=== PATIENT | female | born 1935 | race Caucasian/White ===

== ENCOUNTER → 2017-09-03 | Outpatient (CLI) | payer MEDICARE, OTHER ==
[~2017-09-03] MED LIST: ACE3 PO; ACET500T68 PO; AMOX500T10 PO; ATOR10TA65 PO; ATR10 PO; BRIM5DRO7 OP; CALC-635 PO; CALC-649 PO; CEFU500T50 PO; CETI-176 PO; CLIN300C99 PO; COS10OD OD; CYA1000 PO; CYCL25CA13 PO; CYCL25CA5 PO; CYCL25CA8 PO; CYCL50CA5 PO; DESO15OI9 TP; DORZ10DR3 OP; FURO20TA19 PO; HYDR-4225 PO; HYDR10TA3 PO; LEVO-3 PO; LEVO150T72 PO; LEVO88TA45 PO; LISI-374 PO; LISI2.5T60 PO; METH4TAB66 PO; MV-M1TAB38; PRE5 PO; PRED-1 PO; PRED-420 PO; PRED2.5T6 PO; PRED20TA6 PO; PRED5DRO34 OS; SIRO1TAB4 PO; TRAM-420 PO; TRI05T TP; URSO300C21 PO; URSO500T5 PO; VIT-7 PO; [UNRECOGNIZED DRUG - CODE] OD; [UNRECOGNIZED DRUG - CODE] OP; [UNRECOGNIZED DRUG - CODE] PO; [UNRECOGNIZED DRUG - CODE] PO; [UNRECOGNIZED DRUG - CODE] PO
== END ==
LOC: LAB 16:09
PROVIDERS: ATTEND Otolaryngology
DX: L23.9 Allergic contact dermatitis, unspecified cause (principal); R91.8 Other nonspecific abnormal finding of lung field; Z94.4 Liver transplant status
CPT/HCPCS: 86003

== ENCOUNTER → 2017-09-10 | Outpatient (CLI) | payer MEDICARE, OTHER ==
[2017-09-10 09:32] LABS: PLATELET COUNT, AUTOMATED 283 K/uL (150-450)
== END ==
LOC: LAB 09:08
PROVIDERS: ATTEND Nurse Practitioner Family
DX: Z48.23 Encounter for aftercare following liver transplant (principal); Z94.4 Liver transplant status
CPT/HCPCS: 36415; 80158; 82040; 82247; 82310; 82374; 82435; 82565; 82947; 84075; 84132; 84155; 84295; 84450; 84460; 84520; 85025

== ENCOUNTER → 2017-10-15 | Outpatient (CLI) | payer MEDICARE, OTHER | LOC: LAB 08:25 | PROVIDERS: ATTEND Internal Medicine | DX: I10 Essential (primary) hypertension (principal); E03.9 Hypothyroidism, unspecified | CPT/HCPCS: 36415; 82040; 82247; 82310; 82374; 82435; 82465; 82565; 82947; 83718; 84075; 84132; 84155; 84295; 84443; 84450; 84460; 84478; 84520 ==

== ENCOUNTER 2017-10-24 14:27 | Emergency (ER) | payer MEDICARE, OTHER ==
[~2017-10-24 14:27] MED LIST changes: -ASPI81TA94 PO
--- NOTE | 2017-10-24 14:34 | ER Report ---
History and Physical Time Seen By MD: 14:34 HPI/ROS CHIEF COMPLAINT: Chest pain HISTORY OF PRESENT ILLNESS: This is an 82-year-old female who presents to the emergency department for chest pain. Patient states that about 10:00 today while doing some light housework she developed some left anterior chest pain that wraps around her left chest causing some shortness of breath. Patient denies nausea or vomiting. Patient denies diaphoresis. Patient does state that she had a headache earlier this morning which is unusual for her she did take some Tylenol which helped the headache go away. Patient denies headaches at this time. Patient denies aches, chills, abdominal pain, rashes or dysuria. Patient denies chest pain at this time. REVIEW OF SYSTEMS: Constitutional: No fever, no chills. Eyes: No discharge. ENT: No sore throat. Cardiovascular: As above. Respiratory: As above. Gastrointestinal: No abdominal pain, no vomiting. Genitourinary: No hematuria. Musculoskeletal: No back pain. Skin: No rashes. Neurological: As above. Allergies: Coded Allergies: Sulfa (Sulfonamide Antibiotics) (Verified Allergy, Severe, blisters in mouth, 10/24/17) lisinopril (Verified Allergy, Severe, angioedema, 10/24/17) alendronate sodium (Verified Allergy, Intermediate, JOINT SWELLING, ) benzalkonium chloride (Verified Allergy, Intermediate, FACIAL SWELLING, ) brimonidine (Verified Allergy, Intermediate, SWELLING, 10/24/17) chocolate flavor (Verified Allergy, Intermediate, UNKNOWN, 10/24/17) clindamycin (Verified Allergy, Intermediate, facial swelling, itching and rash, 10/24/17) difluprednate (Verified Allergy, Intermediate, SWELLING, 10/24/17) dog dander (Verified Allergy, Intermediate, RASH, 10/24/17) dorzolamide (Verified Allergy, Intermediate, EYE ITCHING, 10/24/17) timolol (Verified Allergy, Intermediate, EYE ITCHING, 10/24/17) travoprost (Verified Allergy, Intermediate, FACIAL SWELLING, 10/24/17) milk (Verified Allergy, Mild, RASH, 10/24/17) Uncoded Allergies: PRESERVATIVES IN EYE MEDS (Allergy, Unknown, 09/07/13) Home Meds Active Scripts Levothyroxine Sodium (SYNTHROID) 88 Mcg Tablet, 1 TAB PO QDAY, #45 TAB 0 Refills Prov:HORACE MEJIA MD 10/20/17 Hydroxyzine Hcl (HYDROXYZINE HCL) 25 Mg Tablet, 1 TAB PO TID Y for itching, #30 TAB 1 Refill Prov:HORACE MEJIA MD 10/13/17 Amoxicillin 500 Mg Tab (AMOXICILLIN 500 MG TAB) 500 Mg Tablet, 4 TAB PO ONCE, # 4 TAB 0 Refills Take 4 tablets (2 gms) orally 1 hour prior to dental procedure. Prov:HORACE MEJIA MD 09/10/17 Atorvastatin Calcium (ATORVASTATIN CALCIUM) 10 Mg Tablet, 1 TAB PO QDAY, #90 TAB 3 Refills Prov:HORACE MEJIA MD 02/18/17 Furosemide (LASIX) 20 Mg Tablet, 1 TAB PO DAILY Y for edema, #30 TAB 5 Refills Prov:HORACE MEJIA MD 01/29/17 Reported Medications Mv-Mn/FA/Vit K/Lycop/Lut/Zeaxa (Ocuvite Eye + Multi Tablet) 1 Each Tablet, 1 DAILY 03/13/17 Calcium Carbonate/Vitamin D3 (CALCIUM 600 + VIT D 200 TABLET) 1 Each Tablet, 1 EACH PO DAILY 03/13/17 Cyclosporine (CYCLOSPORINE) 25 Mg Capsule, 2 CAP PO BID, CAPSULE 02/20/16 Cetirizine Hcl (ZYRTEC) 10 Mg Tablet, 1 TAB PO QDAY Y for ALLERGY SYMPTOMS, TAB 02/01/16 Acetaminophen (TYLENOL EXTRA STRENGTH) 500 Mg Tablet, 1-2 TAB PO QID Y for PAIN , TAB 02/01/16 Ursodiol (URSODIOL) 300 Mg Capsule, 1 CAP PO BID, CAPSULE 01/30/15 Discontinued Scripts Levothyroxine Sodium (LEVOTHYROXINE SODIUM) 100 Mcg Tablet, 1 TAB PO QDAY, #90 TAB 1 Refill Prov:HORACE MEJIA MD 09/23/17 Past Medical/Surgical History Patient has a past medical and surgical history of pericarditis, hypercholesterolemia, lung mass, pneumonia, insomnia, intermittent abdominal pain, 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 Reviewed Nurses Notes: Yes Hx Smoking: No Smoking Status: Never Smoker Exposure to Second Hand Smoke?: Yes (father smoked pipes, smoked cigarettes and pipes) Hx Substance Use Disorder: No Hx Alcohol Use: No Constitutional Vital Sign - Last 24 Hours 10/24/17 10/24/17 10/24/17 10/24/17 14:32 14:32 14:42 14:57 Temp 97.8 Pulse 122 114 111 Resp 18 17 B/P (MAP) 154/98 154/98 (116) Pulse Ox 93 93 93 O2 Delivery Room Air 10/24/17 10/24/17 10/24/17 10/24/17 14:59 14:59 15:12 15:15 Pulse 111 107 Resp 21 17 B/P (MAP) 140/93 (109) 140/93 (109) 156/97 (116) Pulse Ox 90 94 O2 Delivery Room Air 10/24/17 10/24/17 10/24/17 10/24/17 15:27 15:30 15:42 15:45 Pulse 105 100 Resp 35 28 B/P (MAP) 171/101 (124) 153/88 (109) Pulse Ox 97 96 10/24/17 10/24/17 10/24/17 10/24/17 15:57 16:02 16:15 16:17 Pulse 99 97 96 Resp 13 15 21 B/P (MAP) 145/85 (105) Pulse Ox 98 96 96 10/24/17 10/24/17 10/24/17 16:22 16:30 16:37 Pulse 94 96 Resp 19 51 B/P (MAP) 136/81 (99) Pulse Ox 96 95 Intake and Output 10/24/17 10/24/17 10/25/17 15:00 23:00 07:00 Intake Total 507 ml Balance 507 ml Physical Exam General Appearance: The patient is alert, has no immediate need for airway protection and no signs of toxicity. Eyes: Pupils equal and round no pallor or injection. ENT, Mouth: Mucous membranes are moist. Respiratory: There are no retractions, lungs are clear to auscultation. Cardiovascular: Regular rate and rhythm, no murmurs, clicks or rubs. Gastrointestinal: Abdomen is soft and non tender, no masses, bowel sounds normal. Neurological: Alert and oriented 4. Lovenox Slana's. Following all commands. No focal neuro deficits. Skin: Warm and dry, no rashes. Musculoskeletal: Neck is supple non tender. Extremities are nontender, nonswollen and have full range of motion. DIFFERENTIAL DIAGNOSIS: After history and physical exam differential diagnosis was considered for chest pain including but not limited to myocardial ischemia, pericarditis pulmonary embolus, chest wall pain, pleural inflammation and pulmonary infectious causes. Medical Decision Making Data Points Result Diagram: 10/24/17 1435 10/24/17 1435 Laboratory Hematology Test 10/24/17 14:35 10/24/17 15:00 Red Blood Count 5.02 M/uL (4.17-5.56) Mean Corpuscular Volume 90.1 fL (80.0-96.0) Mean Corpuscular Hemoglobin 31.4 pg (26.0-33.0) Mean Corpuscular Hemoglobin Concent 34.9 g/dL (32.0-36.0) Red Cell Distribution Width 13.9 % (11.5-14.5) Mean Platelet Volume 8.1 fL (7.2-11.1) Neutrophils (%) (Auto) 80.5 % (39.4-72.5) Lymphocytes (%) (Auto) 10.8 % (17.6-49.6) Monocytes (%) (Auto) 6.9 % (4.1-12.4) Eosinophils (%) (Auto) 1.1 % (0.4-6.7) Basophils (%) (Auto) 0.7 % (0.3-1.4) Nucleated RBC Relative Count (auto) 0.2 /100WBC Neutrophils # (Auto) 10.5 K/uL (2.0-7.4) Lymphocytes # (Auto) 1.4 K/uL (1.3-3.6) Monocytes # (Auto) 0.9 K/uL (0.3-1.0) Eosinophils # (Auto) 0.1 K/uL (0.0-0.5) Basophils # (Auto) 0.1 K/uL (0.0-0.1) Nucleated RBC Absolute Count (auto) 0.02 K/uL D-Dimer Quantitative (PE/DVT) 0.98 ug/ml (0-0.50) Sodium Level 137 mmol/L (137-145) Potassium Level 4.0 mmol/L (3.5-5.0) Chloride Level 97 mmol/L (98-107) Carbon Dioxide Level 27 mmol/L (22-31) Blood Urea Nitrogen 25 mg/dl (7-18) Creatinine 1.40 mg/dl (0.52-1.04) Glomerular Filtration Rate Calc 36.0 Random Glucose 142 mg/dl (75-110) Calcium Level 10.2 mg/dl (8.4-10.2) Total Bilirubin 1.4 mg/dl (0.2-1.3) Aspartate Amino Transf (AST/SGOT) 44 U/L (0-35) Alanine Aminotransferase (ALT/SGPT) 39 U/L (0-56) Alkaline Phosphatase 577 U/L (0-126) Troponin I 2.600 ng/ml B-Type Natriuretic Peptide 129 pg/ml (0-100) Total Protein 8.0 gm/dl (6.3-8.2) Albumin 4.3 g/dl (3.5-5.0) Prothrombin Time 13.0 seconds (12.0-14.4) Prothromb Time International Ratio 0.98 Activated Partial Thromboplast Time 34 seconds (23-35) Chemistry Test 10/24/17 14:35 10/24/17 15:00 White Blood Count 13.1 k/uL (4.5-11.0) Red Blood Count 5.02 M/uL (4.17-5.56) Hemoglobin 15.8 g/dL (12.0-16.0) Hematocrit 45.3 % (34.0-47.0) Mean Corpuscular Volume 90.1 fL (80.0-96.0) Mean Corpuscular Hemoglobin 31.4 pg (26.0-33.0) Mean Corpuscular Hemoglobin Concent 34.9 g/dL (32.0-36.0) Red Cell Distribution Width 13.9 % (11.5-14.5) Platelet Count 308 K/uL (150-450) Mean Platelet Volume 8.1 fL (7.2-11.1) Neutrophils (%) (Auto) 80.5 % (39.4-72.5) Lymphocytes (%) (Auto) 10.8 % (17.6-49.6) Monocytes (%) (Auto) 6.9 % (4.1-12.4) Eosinophils (%) (Auto) 1.1 % (0.4-6.7) Basophils (%) (Auto) 0.7 % (0.3-1.4) Nucleated RBC Relative Count (auto) 0.2 /100WBC Neutrophils # (Auto) 10.5 K/uL (2.0-7.4) Lymphocytes # (Auto) 1.4 K/uL (1.3-3.6) Monocytes # (Auto) 0.9 K/uL (0.3-1.0) Eosinophils # (Auto) 0.1 K/uL (0.0-0.5) Basophils # (Auto) 0.1 K/uL (0.0-0.1) Nucleated RBC Absolute Count (auto) 0.02 K/uL D-Dimer Quantitative (PE/DVT) 0.98 ug/ml (0-0.50) Glomerular Filtration Rate Calc 36.0 Calcium Level 10.2 mg/dl (8.4-10.2) Total Bilirubin 1.4 mg/dl (0.2-1.3) Aspartate Amino Transf (AST/SGOT) 44 U/L (0-35) Alanine Aminotransferase (ALT/SGPT) 39 U/L (0-56) Alkaline Phosphatase 577 U/L (0-126) Troponin I 2.600 ng/ml B-Type Natriuretic Peptide 129 pg/ml (0-100) Total Protein 8.0 gm/dl (6.3-8.2) Albumin 4.3 g/dl (3.5-5.0) Prothrombin Time 13.0 seconds (12.0-14.4) Prothromb Time International Ratio 0.98 Activated Partial Thromboplast Time 34 seconds (23-35) Coagulation Test 10/24/17 14:35 10/24/17 15:00 D-Dimer Quantitative (PE/DVT) 0.98 ug/ml Prothrombin Time 13.0 seconds Prothromb Time International Ratio 0.98 Activated Partial Thromboplast Time 34 seconds EKG/Imaging EKG Interpretation 12 lead EKG: Time of EKG 1439. Rhythm: Sinus tachycardia, ventricular rate 109 BPM. Ogema: normal QRS: normal ST segments: There does appear to be some ST elevation in V3, V4, V5 and V6, however there are no reciprocal changes noted. She does have MI interval depression in V2. There are changes in the EKG in the V3 through V6 leads from the 03/13/2017 EKG. 12 lead EKG: Repeat EKG 1503 Rhythm: Sinus tachycardia, ventricular rate 103 BPM. Ogema: normal QRS: normal ST segments: ST elevation in V2, V3, V4 V5. No significant changes from the 14 3090 EKG. Imaging Location: [facility] Patient: Patricia Garcia : 1935 Visit/Account:[id number] Date of Sevice: 10/24/2017 2 VIEWS CHEST INDICATION: Chest pain. COMPARISON: 07/07/2017. FINDINGS: Cardiomediastinal silhouette and pulmonary vessels within normal limits. There is no focal infiltrate or lobar consolidation. There is no pneumothorax or pleural effusion. No nodule. Upper abdomen is unremarkable. No acute bony abnormality. Stable compression the T12 vertebral body. Left shoulder arthroplasty without sequelae. IMPRESSION: 1. No acute cardiopulmonary process. Report Dictated By: Deshaun Kramer at 10/24/2017 3:02 PM Report E-Signed By: Deshaun Kramer at 10/24/2017 3:05 PM WSN:[id number] ED Course/Re-evaluation Clinical Indication for ER IV: Hydration, IV Access ED Course The patient was admitted to room. A history and physical were obtained. Differential diagnoses were considered. An IV was started. A CBC, CMP, Troponin , D-dimer and BNP were obtained. The troponin was elevated at 2.6. The PVCs 13.1 BUN 25 creatinine 1.4. EKGs 2 showing elevation in V3 and V4, V5, EV leads are different from the 03/13/2017 EKG were there was no elevation noted. Patient does have MI interval depression which is the same on the EKG from 2017. Two-view chest x-ray showing no acute cardio for any process. I did review these results with the patient did tell her that we will need to transport her to [place] patient was in agreement with this. I did speak with Dr. mann-the pool table mechanic on-call at [facility] and he is accepted the patient as an N-STEMI. I also spoke with Dr. Bowers the hospitalist at [facility] who has agreed to accept the patient as well. I did review this with the patient and she is in agreement with this plan of care. Patient will be transported to [facility] V a ground ambulance. Patient did get 324mg ASA, 4 mg IV morphine, 4,000 unit heparin bolus and started on a 12unit per kg heparin gtt. The patient was also given 50mcg IV fentanyl and a 500ml NS bolus. Patient did have intermittent chest pain and shoulder pain in the emergency department the morphine did seem to help however she was still having some discomfort therefore we decided to give fentanyl which seemed to relieve some of her discomfort. 10/24/2017 4:02:51 pm I did speak with Dr. Toussaint the [facility] pool table mechanic pre k special education teacher who accepted the patient as an N-Stemi. I will go ahead and give a 4000 unit heparin bolus as well as a 12 unit per kilogram heparin drip. Dr. Toussaint said there is no need to give Plavix or tenecteplase at this time. He said talk with the hospitalist to get their acceptance as a hospitalist patient. 10/24/2017 4:04:41 pm he did speak with Dr. Bowers at [facility], the hospitalist on- call he is accepted the patient and his services and will consult with Dr. Toussaint. Decision to Disposition Date: Oct 24, 2017 Decision to Disposition Time: 15:53 Depart Departure Latest Vital Signs Vital Signs Date Time Temp Pulse Resp B/P (MAP) Pulse Ox O2 Delivery O2 Flow Rate FiO2 10/24/17 16:37 96 51 95 10/24/17 16:30 136/81 (99) 10/24/17 14:59 Room Air 10/24/17 14:32 97.8 Impression: Primary Impression: Non-ST elevation TN (NSTEMI) Condition: Improved Disposition: XFER TO ACUTE CARE [facility]OSPITAL Referrals: HORACE MEJIA MD (PCP) MACHINIST INSTRUCTOR/PA consult with MD: Verbally, Examined Patient MD Consult Note: DAJUAN Cote CYBER SOFTWARE ENGINEER-BC Oct 24, 2017 14:34
[2017-10-24] MEDS ORDERED: ASPIRIN 81 MG CHEW PO ONE (14:45)
[2017-10-24 14:50] LABS: PLATELET COUNT, AUTOMATED 308 K/uL (150-450)
--- NOTE | 2017-10-24 15:09 | RADIOLOGY IMAGING REPORT ---
FACILITY: [facility] PATIENT NAME: Patricia Garcia : 1935 MR: [id number] V: [id number] EXAM DATE: ORDERING PHYSICIAN: DAJUAN OLVERA TECHNOLOGIST: Location: [facility] [place] Patient: Patricia Garcia : 1935 Visit/Account:[id number] Date of Sevice: 10/24/2017 2 VIEWS CHEST INDICATION: Chest pain. COMPARISON: 07/07/2017. FINDINGS: Cardiomediastinal silhouette and pulmonary vessels within normal limits. There is no focal infiltrate or lobar consolidation. There is no pneumothorax or pleural effusion. No nodule. Upper abdomen is unremarkable. No acute bony abnormality. Stable compression the T12 vertebral body. Left shoulder arthroplasty with out sequelae. IMPRESSION: 1. No acute cardiopulmonary process. Report Dictated By: Deshaun Kramer at 10/24/2017 3:02 PM Report E-Signed By: Deshaun Kramer at 10/24/2017 3:05 PM WSN:[id number]
[2017-10-24] MEDS ORDERED: NITROGLYCERIN 0.4 MG SUBL SL ONE (15:10)
[2017-10-24] MEDS ORDERED: NS(*) 0.9% 500 ML BAG 500 ML IV ONE (15:10)
--- NOTE | 2017-10-24 15:19 | EKG ---
FACILITY: [facility] - [place] PATIENT NAME: MONICA MYERS : [id number] MR: [id number] V: [id number] EXAM DATE: ORDERING PHYSICIAN: DAJUAN OLVERA TECHNOLOGIST: MARITZA Sriinvasan Reason : REPEAT Blood Pressure : / mmHG Vent. Rate : 103 BPM Atrial Rate : 103 BPM P-R Int : 186 ms QRS Dur : 072 ms QT Int : 324 ms P-R-T Axes : 073 005 057 degrees QTc Int : [address] elevation, consider early repolarization, pericarditis, or injury Abnormal ECG When compared with ECG of 24-OCT-2017 14:39, No significant change was found Confirmed by STUART SOLIMAN ([id number]) on 10/24/2017 4:34:54 PM Referred By: DAJUAN Confirmed By:STUART SOLIMAN
--- NOTE | 2017-10-24 15:19 | EKG ---
FACILITY: [facility] PATIENT NAME: MONICA MYERS : [id number] MR: [id number] V: [id number] EXAM DATE: ORDERING PHYSICIAN: DAJUAN OLVERA TECHNOLOGIST: MARITZA Test Reason : CP Blood Pressure : / mmHG Vent. Rate : 109 BPM Atrial Rate : 109 BPM P-R Int : 180 ms QRS Dur : 068 ms QT Int : 312 ms P-R-T Axes : 067 000 053 degrees QTc Int : [address] elevation in Inferior leads Abnormal ECG When compared with ECG of 13-MAR-2017 07:51, Previous ECG has undetermined rhythm, needs review Confirmed by STUART SOLIMAN ([id number]) on 10/24/2017 4:34:33 PM Referred By: DAJUAN Confirmed By:STUART SOLIMAN
[2017-10-24] MEDS ORDERED: HEPARIN* SOD/D5W 25000 U/500ML 500 ML IV ONE (15:24)
[2017-10-24] MEDS ORDERED: MORPHINE 4 MG/ML SDV IVP ONE (15:25)
[2017-10-24] MEDS ORDERED: HEPARIN (PORC) 5000 UN/ML VIAL IVP ONE (15:25)
[2017-10-24] MEDS ORDERED: fentaNYL CITR 100 MCG/2 ML AMP IVP ONE (15:55)
[2017-10-24 15:57] LABS: INR 0.98
[2017-10-24 16:30] VITALS: BP 136/81
[2017-10-27] MEDS ORDERED: ASPI81TA94 PO (15:07)
[2017-10-27] MEDS ORDERED: PRED-1 PO (15:07)
== END 2017-10-24 16:55 | disposition short-term general hospital (02) ==
LOC: ER 14:32
DX: I21.4 Non-ST elevation (NSTEMI) myocardial infarction (principal); R00.0 Tachycardia, unspecified; R94.31 Abnormal electrocardiogram [ECG] [EKG]
CPT/HCPCS: 71046; 83880; 84484; 85025; 85379; 85610; 85730; 93005; 96365; 96375; 99285; A9270; J1644; J2270; J3010; J7040; 82040; 82247; 82310; 82374; 82435; 82565; 82947; 84075; 84132; 84155; 84295; 84450; 84460; 84520

== ENCOUNTER → 2017-10-24 | Outpatient (CLI) | payer MEDICARE, OTHER ==
[~2017-10-24] MED LIST changes: +ASPI81TA94 PO; +LEVO88TA43 PO
== END ==
LOC: AMB 16:32
PROVIDERS: ATTEND Nurse Practitioner
DX: I21.4 Non-ST elevation (NSTEMI) myocardial infarction (principal)

== ENCOUNTER → 2017-10-28 | Outpatient (CLI) | payer MEDICARE, OTHER ==
[~2017-10-28] MED LIST changes: +ASPI81TA94 PO
--- NOTE | 2017-10-29 16:22 | RADIOLOGY IMAGING REPORT ---
FACILITY: [facility] PATIENT NAME: MONICA MYERS : [id number] MR: [id number] V: [id number] EXAM DATE: [id number] ORDERING PHYSICIAN: HORACE MEJIA TECHNOLOGIST: Yamilet Carter PROCEDURE:BILATERAL DIGITAL SCREENING MAMMOGRAM WITH CAD ASSISTED INTERPRETATION & 3D TOMOSYNTHESIS COMPARISON:Prior mammograms 08/08/16, 07/29/16, 07/26/15, 07/11/14, 07/01/13, 06/29/12. INDICATIONS:screening FINDINGS: Small amount of fibroglandular tissue is seen throughout the breasts. The parenchymal pattern has remained stable allowing for difference in mammographic technique & patient positioning. There is no evidence of malignant appearing mass, malignant appearing calcifications or other secondary sign of malignancy in either breast. DIAGNOSTIC CATEGORY 1--NEGATIVE. RECOMMENDATIONS: ROUTINE MAMMOGRAM AND CLINICAL EVALUATION. IMPRESSION: BIRADS 1: Negative No significant abnormality is seen. Dictated by: Gertrudis Enriquez M.D. on 10/28/2017 at 16:19 Transcribed by: IVA on 10/29/2017 at 8:57 Approved by: Gertrudis Enriquez M.D. on 10/29/2017 at 16:21 [facility]
== END ==
LOC: MAMO 01:10
PROVIDERS: ATTEND Internal Medicine
DX: Z12.31 Encounter for screening mammogram for malignant neoplasm of breast (principal)
CPT/HCPCS: 77063; 77067

== ENCOUNTER → 2017-11-06 | Outpatient (CLI) | payer MEDICARE, OTHER ==
[2017-11-06 09:52] LABS: PLATELET COUNT, AUTOMATED 321 K/uL (150-450)
== END ==
LOC: LAB 09:29
PROVIDERS: ATTEND Nurse Practitioner Family
DX: Z48.23 Encounter for aftercare following liver transplant (principal); Z94.4 Liver transplant status; Z48.298 Encounter for aftercare following other organ transplant
CPT/HCPCS: 36415; 80158; 82040; 82247; 82310; 82374; 82435; 82565; 82947; 84075; 84132; 84155; 84295; 84450; 84460; 84520; 85025

== ENCOUNTER → 2017-12-04 | Outpatient (CLI) | payer MEDICARE, OTHER | LOC: LAB 08:56 | PROVIDERS: ATTEND Internal Medicine | DX: E03.9 Hypothyroidism, unspecified (principal) | CPT/HCPCS: 84443 ==

== ENCOUNTER → 2017-12-04 | Outpatient (CLI) | payer MEDICARE, OTHER ==
[2017-12-04 09:26] LABS: PLATELET COUNT, AUTOMATED 294 K/uL (150-450)
== END ==
LOC: LAB 08:52
PROVIDERS: ATTEND Nurse Practitioner Family
DX: Z48.298 Encounter for aftercare following other organ transplant (principal); Z48.23 Encounter for aftercare following liver transplant; Z94.4 Liver transplant status
CPT/HCPCS: 36415; 80158; 82040; 82247; 82310; 82374; 82435; 82565; 82947; 84075; 84132; 84155; 84295; 84450; 84460; 84520; 85025

== ENCOUNTER → 2018-01-14 | Outpatient (CLI) | payer MEDICARE, OTHER ==
[2018-01-14 08:54] LABS: PLATELET COUNT, AUTOMATED 250 K/uL (150-450)
== END ==
LOC: LAB 08:34
PROVIDERS: ATTEND Nurse Practitioner Family
DX: Z48.298 Encounter for aftercare following other organ transplant (principal); Z48.23 Encounter for aftercare following liver transplant; Z94.4 Liver transplant status
CPT/HCPCS: 36415; 80158; 82040; 82247; 82310; 82374; 82435; 82565; 82947; 84075; 84132; 84155; 84295; 84450; 84460; 84520; 85025

== ENCOUNTER → 2018-01-14 | Outpatient (CLI) | payer MEDICARE, OTHER | LOC: LAB 08:37 | PROVIDERS: ATTEND Emergency Medicine | DX: E03.9 Hypothyroidism, unspecified (principal) | CPT/HCPCS: 36415; 84443 ==

== ENCOUNTER → 2018-03-26 | Outpatient (CLI) | payer MEDICARE, OTHER ==
[~2018-03-26] MED LIST changes: +PIMT TP
[2018-03-26 09:05] LABS: PLATELET COUNT, AUTOMATED 292 K/uL (150-450)
== END ==
LOC: LAB 08:37
PROVIDERS: ATTEND Nurse Practitioner Family
DX: Z48.23 Encounter for aftercare following liver transplant (principal); Z48.298 Encounter for aftercare following other organ transplant; Z94.4 Liver transplant status
CPT/HCPCS: 36415; 80158; 82040; 82247; 82310; 82374; 82435; 82565; 82947; 84075; 84132; 84155; 84295; 84450; 84460; 84520; 85025

== ENCOUNTER → 2018-04-12 | Outpatient (CLI) | payer MEDICARE, OTHER ==
--- NOTE | 2018-04-12 10:08 | RADIOLOGY IMAGING REPORT ---
FACILITY: [facility] - [place] PATIENT NAME: Patricia Garcia : 1935 MR: [id number] V: [id number] EXAM DATE: ORDERING PHYSICIAN: MAT RICHEY TECHNOLOGIST: Location: [facility] Patient: Patricia Garcia : 1935 Visit/Account:[id number] Date of Sevice: 04/12/2018 DEXA Scan Clinical history: Osteopenia. Comparison: DEXA scan from 06/09/2011. LUMBAR SPINE: The bone mineral density (BMD) measured from L1-L4 correlates with a Z-score -1.2 and a T-score of -3 .2 which is osteoporosis as defined by the World Health Organization. The corresponding risk of frac ture in the lumbar spine is high compared with a young adult reference population. This value has de crease by 5.8 % since the prior study. More than 5% change is considered significant. FOREARM: The bone mineral density (BMD) measured in the ULTRADISTAL Left forearm, where trabecular bone predom inates, correlates with a Z-score of -1.0 and a T-score of -4.1 which is osteoporosis as defined by t he World Health Organization. The corresponding risk of fracture in the distal forearm is high yue red with a young adult reference population. The bone mineral density (BMD) in the MIDSHAFT of the forearm, where cortical bone predominates, joss elates with a Z-score of -0.4 and a T-score of -3.4 which is osteoporosis as defined by the World Hea h Organization. The corresponding risk of fracture in the midshaft of the forearm is high compared with a young adult reference population. IMPRESSION: 1. Lumbar spine: Osteoporosis. There has been decrease in the bone mineral density since the previo us exam. 2. Left Forearm: Osteoporosis. The next DEXA scan of this patient should include the following sites: L1-L4 and the left forearm. FRAX? WHO Fracture Risk Assessment Tool link: <http://www.shef.ac.uk/FRAX/tool.jsp?locationValue=9> PLEASE NOTE: 1) The World Health Organization defines low BMD as follows: T-score Normal > -1 Osteopenia < -1 and > -2.5 Osteoporosis < -2.5 without fractures Established osteoporosis < -2.5 with fractures 2) In general, you may wish to consider: Diagnosis Treatment Follow-up DEXA Normal BMD Prevention 2-3 years Osteopenia Prevention/therapy 1-2 years Osteoporosis Therapy Yearly 3) Fracture risk estimated from the T-score is more accurate for vertebral fractures (often spontane ous) than for hip fractures. Report Dictated By: Héctor Centeno at 04/12/2018 9:59 AM Report E-Signed By: Héctor Centeno at 04/12/2018 10:03 AM WSN:[id number]
== END ==
LOC: RAD 00:31
PROVIDERS: ATTEND Emergency Medicine
DX: M81.0 Age-related osteoporosis without current pathological fracture (principal)
CPT/HCPCS: 36415; 77080; 82306; 82310; 83970

== ENCOUNTER → 2018-04-29 | Outpatient (CLI) | payer MEDICARE, OTHER ==
[~2018-04-29] MED LIST changes: +LEVO25TA61 PO; +LEVO50TA86 PO
== END ==
LOC: LAB 13:12
PROVIDERS: ATTEND Emergency Medicine
DX: E03.9 Hypothyroidism, unspecified (principal); E34.9 Endocrine disorder, unspecified; Z98.890 Other specified postprocedural states
CPT/HCPCS: 36415; 82310; 83970; 84443

== ENCOUNTER → 2018-05-04 | Outpatient (CLI) | payer MEDICARE, OTHER ==
--- NOTE | 2018-05-04 15:12 | RADIOLOGY IMAGING REPORT ---
FACILITY: [facility] - [place] PATIENT NAME: Patricia Garcia : 1935 MR: [id number] V: [id number] EXAM DATE: ORDERING PHYSICIAN: MAT RICHEY TECHNOLOGIST: Location: [facility] Patient: Patricia Garcia : 1935 Visit/Account:[id number] Date of Sevice: 05/04/2018 THYROID HISTORY: Elevated parathyroid levels COMPARISON: None. FINDINGS: SIZE: Right lobe appears very small consistent with the history of prior surgery Right lobe: 1.8 x 0.5 x 0.3 cm cm Left lobe: 3.2 x 1 x 1.1 cm cm Isthmus: 3 mm PARENCHYMA: Homogeneous. NODULES: Right lobe: * None discrete. Left lobe: * There are multiple cysts identified within the left lobe the largest measuring 6 mm in diameter Isthmus: * None discrete. VASCULARITY: Within normal limits. ADDITIONAL FINDINGS: None. IMPRESSION: The right lobe appears extremely small consistent with the history of prior surgery Multiple small cysts identified in the left lobe REFERENCE: 2015 [place] [employer] Management Guidelines for Adult Patients with Thyroid Nodules and D ifferentiated Thyroid Cancer: The [place] [employer] Guidelines Task Force on Thyroid Nodul es and Differentiated Thyroid Cancer. SONOGRAPHIC PATTERNS: * Benign: Purely cystic nodules (no solid component); estimated risk of malignancy <1 percent; no bi opsy recommended. * Very Low Suspicion: Spongiform or partially cystic nodules without any of the sonographic features described in low, intermediate, or high suspicion patterns; estimated risk of malignancy <3 percent; consider FNA at > 2 cm (Observation without FNA is also a reasonable option). * Low Suspicion: Isoechoic or hyperechoic solid nodule, or partially cystic nodule with eccentric so lid areas, without microcalcification, irregular margin or ETE (extra-thyroidal extension), or taller than wide shape; estimated risk of malignancy 5-10 percent; recommend FNA at >1.5 cm. * Intermediate Suspicion: Hypoechoic solid nodule with smooth margins without microcalcifications, E TE (extra-thyroidal extension), or taller than wide shape; estimated risk of malignancy 10-20 percent ; recommend FNA at > 1 cm. * High Suspicion: Solid hypoechoic nodule or solid hypoechoic component of a partially cystic nodule with one or more of the following features: irregular margins (infiltrative, microlobulated), microc alcifications, taller than wide shape, rim calcifications with small extrusive soft tissue component, evidence of ETE (extra-thyroidal extension); estimated risk of malignancy >70-90 percent; recommend FNA at > 1 cm. NOTES: * Although a sonographically suspicious subcentimeter thyroid nodule without evidence of extrathyroi laurel extension or sonographically suspicious lymph nodes may be observed with close sonographic follow -up rather than pursuing immediate FNA, patient age and preference may modify decision-making. A > 50% interval increase in nodule volume and/or development of new suspicious sonographic features are felt to be a valid reasons for potential re-aspiration of a nodule previously shown to have benig n FNA cytology. Report Dictated By: Gertrudis Enriquez MD at 05/04/2018 3:03 PM Report E-Signed By: Gertrudis Enriquez MD at 05/04/2018 3:07 PM WSN:[id number]
== END ==
LOC: US 00:11
PROVIDERS: ATTEND Emergency Medicine
DX: E04.2 Nontoxic multinodular goiter (principal)
CPT/HCPCS: 76536

== ENCOUNTER 2018-05-08 13:57 | Emergency (ER) | payer MEDICARE, OTHER ==
--- NOTE | 2018-05-08 14:21 | ER Report ---
History and Physical Time Seen By MD: 14:21 Hx. of Stated Complaint: CHEST PAIN HPI/ROS CHIEF COMPLAINT: chest pain HISTORY OF PRESENT ILLNESS: This is an 83 year old female. She has a history of pericarditis in the past. 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 She feels it in the left side of her chest and seems to move toward the sternum and neck. Also with a headache and pain at the base of the skull. Mild shortness of breath with exertion. She does get increase in pain with deep breaths. No fevers or chills. No recent illness or cough, sore throat or runny nose. No nausea or vomiting. No abdominal pain. Normal bowel and bladder function. No dizziness, weakness or numbness. No vision changes. During her last evaluation with cardiology, they had done a catheter and told her that her heart looked good other than the pericardial inflammation. Allergies: Coded Allergies: Sulfa (Sulfonamide Antibiotics) (Verified Allergy, Severe, blisters in mouth, 05/08/18) lisinopril (Verified Allergy, Severe, angioedema, 05/08/18) alendronate sodium (Verified Allergy, Intermediate, JOINT SWELLING, 05/08/18) benzalkonium chloride (Verified Allergy, Intermediate, FACIAL SWELLING, 05/08/18) brimonidine (Verified Allergy, Intermediate, SWELLING, 05/08/18) chocolate flavor (Verified Allergy, Intermediate, UNKNOWN, 05/08/18) clindamycin (Verified Allergy, Intermediate, facial swelling, itching and rash, 05/08/18) difluprednate (Verified Allergy, Intermediate, SWELLING, 05/08/18) dog dander (Verified Allergy, Intermediate, RASH, 05/08/18) dorzolamide (Verified Allergy, Intermediate, EYE ITCHING, 05/08/18) timolol (Verified Allergy, Intermediate, EYE ITCHING, 05/08/18) travoprost (Verified Allergy, Intermediate, FACIAL SWELLING, 05/08/18) milk (Verified Allergy, Mild, RASH, 05/08/18) Uncoded Allergies: PRESERVATIVES IN EYE MEDS (Allergy, Unknown, 09/07/13) Home Meds Active Scripts Prednisone (PREDNISONE) 20 Mg Tablet, 40 MG PO QDAY, #6 TAB 0 Refills Prov:TRINA WESTON MD 05/08/18 Levothyroxine Sodium (LEVOTHYROXINE SODIUM) 50 Mcg Tablet, 50 MCG PO QDAY, #30 TAB 0 Refills Take 25 mcg for two weeks, then increase to 50 mcg for four weeks, and have [facility]2018 [facility] Prov:MAT RIDER MD 04/30/18 Levothyroxine Sodium (LEVOTHYROXINE SODIUM) 25 Mcg Tablet, 25 MCG PO QDAY, #14 TAB 0 Refills Take 25 mcg for two weeks, then increase to 50 mcg for four weeks, and have TSH re-drawn on 06/01/2018 [facility]. Prov:MAT RIDER MD 04/30/18 Atorvastatin Calcium (ATORVASTATIN CALCIUM) 10 Mg Tablet, 1 TAB PO QDAY, #90 TAB 3 Refills Prov:HORACE MEJIA MD 03/03/18 Pimecrolimus (ELIDEL) 30 Gm Cream..g., 1 BRENDA TP PRN, #1 TUBE 0 Refills Prov:MAT RIDER MD 02/12/18 Hydroxyzine Hcl (HYDROXYZINE HCL) 25 Mg Tablet, 1 TAB PO TID PRN for itching, #30 TAB 1 Refill Prov:HORACE MEJIA MD 10/13/17 Furosemide (LASIX) 20 Mg Tablet, 1 TAB PO DAILY PRN for edema, #30 TAB 5 Refills Prov:HORACE MEJIA MD 01/29/17 Reported Medications Mv-Mn/FA/Vit K/Lycop/Lut/Zeaxa (Ocuvite Eye + Multi Tablet) 1 Each Tablet, 1 DAILY 03/13/17 Calcium Carbonate/Vitamin D3 (CALCIUM 600 + VIT D 200 TABLET) 1 Each Tablet, 1 EACH PO DAILY 03/13/17 Cyclosporine (CYCLOSPORINE) 25 Mg Capsule, 2 CAP PO BID, CAPSULE 02/20/16 Cetirizine Hcl (ZYRTEC) 10 Mg Tablet, 1 TAB PO QDAY PRN for ALLERGY SYMPTOMS, TAB 02/01/16 Acetaminophen (TYLENOL EXTRA STRENGTH) 500 Mg Tablet, 1-2 TAB PO QID PRN for PAIN, TAB 02/01/16 Ursodiol (URSODIOL) 300 Mg Capsule, 1 CAP PO BID, CAPSULE 01/30/15 Reviewed Nurses Notes: Yes Hx Smoking: No Smoking Status: Never Smoker Exposure to Second Hand Smoke?: Yes (father smoked pipes, smoked cigarettes and pipes) Hx Substance Use Disorder: No Hx Alcohol Use: No Constitutional Vital Sign - Last 24 Hours 05/08/18 05/08/18 05/08/18 05/08/18 13:57 14:02 14:06 14:12 Temp 98.0 Pulse 104 98 98 Resp 14 23 B/P (MAP) 133/110 (118) 133/110 Pulse Ox 93 94 O2 Delivery Room Air Room Air 05/08/18 05/08/18 05/08/18 05/08/18 14:15 14:27 14:30 14:42 Pulse 91 98 Resp 11 B/P (MAP) 143/85 (104) 139/88 (105) Pulse Ox 93 O2 Delivery Room Air 05/08/18 05/08/18 05/08/18 05/08/18 14:45 14:50 15:00 15:05 Pulse 89 86 Resp 22 16 B/P (MAP) 135/87 (103) 127/79 (95) Pulse Ox 92 91 O2 Delivery Room Air Room Air 05/08/18 05/08/18 05/08/18 05/08/18 15:15 15:20 15:30 15:35 Pulse 85 88 Resp 18 14 B/P (MAP) 128/83 (98) 141/79 (99) Pulse Ox 92 92 O2 Delivery Room Air Room Air 05/08/18 05/08/18 05/08/18 05/08/18 15:40 15:45 15:55 16:27 Pulse 87 85 Resp 14 14 B/P (MAP) 139/74 (95) 145/88 (107) Pulse Ox 91 91 O2 Delivery Room Air Room Air 05/08/18 05/08/18 05/08/18 05/08/18 16:30 16:40 16:55 17:00 Pulse 79 81 73 Resp 21 21 23 B/P (MAP) 146/77 (100) 129/82 (98) Pulse Ox 93 91 92 O2 Delivery Room Air Room Air Room Air 05/08/18 05/08/18 05/08/18 17:15 17:30 17:45 Pulse 79 84 79 Resp 14 26 23 B/P (MAP) 161/84 (109) Pulse Ox 94 89 O2 Delivery Room Air Room Air Physical Exam General Appearance: The patient is alert. No acute distress. Non-toxic in appearance. Eyes: Pupils are equal, round. No pallor, injection or icterus. Extraocular movements are intact. ENT: Mucous membranes are moist. Normal oral mucosa. Posterior oropharynx is normal. Neck: Supple and non tender. Respiratory: Lungs are clear to auscultation. Cardiovascular: Regular rate and rhythm. No murmurs, gallops or rubs. Normal ca pillary refill. No edema. Gastrointestinal: Abdomen is soft and non tender. Nondistended. Normal active bowel sounds. Neurological: Alert and oriented x3. Skin: Warm and dry. No rashes. Musculoskeletal: Extremities are nontender. Full range of motion. No tenderness in palpation of the cervical, thoracic and lumbar spine. No reproducible chest pain with palpation. DIFFERENTIAL DIAGNOSIS: After history and physical exam, differential diagnosis was considered for chest pain including but not limited to myocardial ischemia, pericarditis pulmonary embolus, chest wall pain, pleural inflammation and pulmonary infectious causes. Medical Decision Making Data Points Result Diagram: 05/08/18 1406 05/08/18 1406 Laboratory Hematology Test 05/08/18 14:06 Red Blood Count 5.02 M/uL (4.17-5.56) Mean Corpuscular Volume 90.4 fL (80.0-96.0) Mean Corpuscular Hemoglobin 31.1 pg (26.0-33.0) Mean Corpuscular Hemoglobin Concent 34.4 g/dL (32.0-36.0) Red Cell Distribution Width 14.2 % (11.5-14.5) Mean Platelet Volume 8.6 fL (7.2-11.1) Neutrophils (%) (Auto) 76.3 % (39.4-72.5) Lymphocytes (%) (Auto) 13.7 % (17.6-49.6) Monocytes (%) (Auto) 7.7 % (4.1-12.4) Eosinophils (%) (Auto) 1.7 % (0.4-6.7) Basophils (%) (Auto) 0.6 % (0.3-1.4) Nucleated RBC Relative Count (auto) 0.1 /100WBC Neutrophils # (Auto) 6.5 K/uL (2.0-7.4) Lymphocytes # (Auto) 1.2 K/uL (1.3-3.6) Monocytes # (Auto) 0.7 K/uL (0.3-1.0) Eosinophils # (Auto) 0.1 K/uL (0.0-0.5) Basophils # (Auto) 0.0 K/uL (0.0-0.1) Nucleated RBC Absolute Count (auto) 0.01 K/uL Erythrocyte Sedimentation Rate 46 mm/HOUR (0-30) D-Dimer Quantitative (PE/DVT) 0.68 ug/ml (0-0.50) Sodium Level 137 mmol/L (137-145) Potassium Level 3.9 mmol/L (3.5-5.0) Chloride Level 97 mmol/L (98-107) Carbon Dioxide Level 28 mmol/L (22-31) Blood Urea Nitrogen 24 mg/dl (7-18) Creatinine 1.20 mg/dl (0.52-1.04) Glomerular Filtration Rate Calc 42.9 Random Glucose 138 mg/dl (75-110) Calcium Level 9.4 mg/dl (8.4-10.2) Total Bilirubin 1.2 mg/dl (0.2-1.3) Aspartate Amino Transf (AST/SGOT) 45 U/L (0-35) Alanine Aminotransferase (ALT/SGPT) 47 U/L (0-56) Alkaline Phosphatase 717 U/L (0-126) Troponin I < 0.012 ng/ml B-Type Natriuretic Peptide 152 pg/ml (0-100) Total Protein 7.9 g/dl (6.3-8.2) Albumin 4.3 g/dl (3.5-5.0) Chemistry Test 05/08/18 14:06 White Blood Count 8.5 k/uL (4.5-11.0) Red Blood Count 5.02 M/uL (4.17-5.56) Hemoglobin 15.6 g/dL (12.0-16.0) Hematocrit 45.3 % (34.0-47.0) Mean Corpuscular Volume 90.4 fL (80.0-96.0) Mean Corpuscular Hemoglobin 31.1 pg (26.0-33.0) Mean Corpuscular Hemoglobin Concent 34.4 g/dL (32.0-36.0) Red Cell Distribution Width 14.2 % (11.5-14.5) Platelet Count 309 K/uL (150-450) Mean Platelet Volume 8.6 fL (7.2-11.1) Neutrophils (%) (Auto) 76.3 % (39.4-72.5) Lymphocytes (%) (Auto) 13.7 % (17.6-49.6) Monocytes (%) (Auto) 7.7 % (4.1-12.4) Eosinophils (%) (Auto) 1.7 % (0.4-6.7) Basophils (%) (Auto) 0.6 % (0.3-1.4) Nucleated RBC Relative Count (auto) 0.1 /100WBC Neutrophils # (Auto) 6.5 K/uL (2.0-7.4) Lymphocytes # (Auto) 1.2 K/uL (1.3-3.6) Monocytes # (Auto) 0.7 K/uL (0.3-1.0) Eosinophils # (Auto) 0.1 K/uL (0.0-0.5) Basophils # (Auto) 0.0 K/uL (0.0-0.1) Nucleated RBC Absolute Count (auto) 0.01 K/uL Erythrocyte Sedimentation Rate 46 mm/HOUR (0-30) D-Dimer Quantitative (PE/DVT) 0.68 ug/ml (0-0.50) Glomerular Filtration Rate Calc 42.9 Calcium Level 9.4 mg/dl (8.4-10.2) Total Bilirubin 1.2 mg/dl (0.2-1.3) Aspartate Amino Transf (AST/SGOT) 45 U/L (0-35) Alanine Aminotransferase (ALT/SGPT) 47 U/L (0-56) Alkaline Phosphatase 717 U/L (0-126) Troponin I < 0.012 ng/ml B-Type Natriuretic Peptide 152 pg/ml (0-100) Total Protein 7.9 g/dl (6.3-8.2) Albumin 4.3 g/dl (3.5-5.0) Coagulation Test 05/08/18 14:06 D-Dimer Quantitative (PE/DVT) 0.68 ug/ml EKG/Imaging EKG Interpretation 12 lead EKG: Rhythm: normal sinus rhythm, rate 88 Sparks: normal QRS: normal ST segments: normal Imaging CHEST PA AND LAT INDICATION: Chest Pain COMPARISON: None available FINDINGS: Heart size within normal limits. There is no focal infiltrate or lobar consolidation. There is no pneumothorax or pleural effusion. IMPRESSION: 1. No acute cardiopulmonary process. Report Dictated By: Tashi Soto at 05/08/2018 3:[address] angiogram chest with contrast Indication: Chest pain. Comparison: 03/13/2017. Technique: Axial CT images are obtained through the chest after administration of 75 mL Isovue 370 IV contrast. Reformatted coronal and sagittal images were reviewed as well as coronal MIP images. One of the following dose optimization techniques was utilized in the performance of this exam: automated exposure control; adjustment of the mA and/or kV according to the patient's size; or use of an iterative reconstruction technique. Specific details can be referenced in the facility's radiology CT exam operational policy. FINDINGS: No evidence of filling defect within the pulmonary vasculature to suggest pulmonary embolus. The heart is normal size without significant pericardial fluid and minimal anterior pericardial thickening which is relatively stable. Mild coronary artery calcifications. The aorta shows mild atherosclerotic calcific changes without aneurysm or dissection. The mediastinum and hilar regions show no enlarged lymph node or abnormal density. In the posterior superior aspect of the left lower lobe there is a persistent small area of airspace consolidation. This is similar to the previous examination and was biopsied on 07/07/2017. The lungs show no other indication of opacities. No consolidation, pleural effusion or pneumothorax. No discrete n odule. Airways are clear. Bony structures show no acute fractures. Stable compression of the T12 vertebral body. Degenerative changes spine. Remodeling of the upper sternum which is stable consistent previous fracture. No aggressive bony lesions. Chest wall shows no enlarged axillary lymph nodes or masses. Upper abdomen is unremarkable with a small hiatal hernia present. IMPRESSION: 1. No evidence of pulmonary embolus. 2. No acute cardiothoracic abnormality 3. Persistent airspace opacity seen in the posterior superior aspect left lower lobe. This is previously biopsied. 4. Other stable chronic findings as above. Report Dictated By: Deshaun Kramer at 05/08/2018 4:51 PM ED Course/Re-evaluation Clinical Indication for ER IV: Hydration, IV Access ED Course Evaluation, patient was given aspirin and labs obtained. EKG as noted above. Imaging negative. Mild elevation of her inflammatory markers. No sign of heart attack or blood clots. D-dimer was little elevated so CT angiogram was obtained. No sign of infectious pulmonary process. We'll start prednisone as this could be early pericarditis or other inflammatory condition such as pleurisy. She'll follow-up with Dr. Rider. Decision to Disposition Date: May 08, 2018 Decision to Disposition Time: 17:40 Depart Departure Latest Vital Signs Vital Signs Date Time Temp Pulse Resp B/P (MAP) Pulse Ox O2 Delivery O2 Flow Rate FiO2 05/08/18 17:45 79 23 05/08/18 17:30 161/84 (109) 89 Room Air 05/08/18 14:06 98.0 Impression: Primary Impression: Chest pain Condition: Improved Disposition: HOME OR SELF-CARE Referrals: MAT RIDER MD (PCP) New Scripts Prednisone (PREDNISONE) 20 Mg Tablet 40 MG PO QDAY, #6 TAB 0 Refills Prov: TRINA WESTON MD 05/08/18 Patient Instructions: Chest Pain (ED) Additional Instructions: We suspect an inflammatory cause for your chest pain. No sign of heart attack, infection or blood clots. We cannot entirely rule out early onset of repeat pericarditis, but this could be inflammation of the lungs called pleurisy. We will start you on a 5 day burst of Prednisone. Prednisone 20mg tablets, take 2 tablets once a day for a total of [address] Rider's office on Thursday to schedule a follow-up with her early this week. Problem Qualifiers Primary Impression: Chest pain Chest pain type: unspecified Qualified Codes: R07.9 - Chest pain, unspecified TRINA WESTON MD May 08, 2018 14:21
[2018-05-08] MEDS ORDERED: ASPIRIN 81 MG CHEW PO ONE (14:25)
--- NOTE | 2018-05-08 14:28 | EKG ---
FACILITY: [facility] PATIENT NAME: MONICA MYERS : [id number] MR: [id number] V: [id number] EXAM DATE: ORDERING PHYSICIAN: TRINA WESTON TECHNOLOGIST: SEAN Srinivasan Reason : CARDIAC Blood Pressure : / mmHG Vent. Rate : 088 BPM Atrial Rate : 088 BPM P-R Int : 180 ms QRS Dur : 078 ms QT Int : 346 ms P-R-T Axes : 071 -03 049 degrees QTc Int : 418 ms Sinus rhythm Nonspecific ST abnormality Abnormal ECG When compared with ECG of 24-OCT-2017 15:03, No significant change was found Confirmed by WINSOME ATKINS ([id number]) on 05/08/2018 5:39:59 PM Referred By: ENRICO Confirmed By:WINSOME ATKINS
[2018-05-08 14:32] LABS: PLATELET COUNT, AUTOMATED 309 K/uL (150-450)
--- NOTE | 2018-05-08 15:11 | RADIOLOGY IMAGING REPORT ---
FACILITY: PATIENT NAME: Patricia Garcia : 1935 MR: [id number] V: [id number] EXAM DATE: ORDERING PHYSICIAN: TRINA WESTON TECHNOLOGIST: Location: [facility] Patient: Patricia Garcia : 1935 Visit/Account:[id number] Date of Sevice: 05/08/2018 CHEST PA AND LAT INDICATION: Chest Pain COMPARISON: None available FINDINGS: Heart size within normal limits. There is no focal infiltrate or lobar consolidation. There is no pneumothorax or pleural effusion. IMPRESSION: 1. No acute cardiopulmonary process. Report Dictated By: Tashi Soto at 05/08/2018 3:07 PM Report E-Signed By: Tashi Soto at 05/08/2018 3:08 PM WSN:[id number]
[2018-05-08] MEDS ORDERED: IOPAMIDOL 76% 75 ML INFUS BTL 75 ML ONE (15:32)
[2018-05-08] MEDS ORDERED: NS(*) 0.9% 50 ML BAG 50 ML ONE (15:33)
--- NOTE | 2018-05-08 17:04 | RADIOLOGY IMAGING REPORT ---
FACILITY: [facility] [place] PATIENT NAME: Patricia Garcia : 1935 MR: [id number] V: [id number] EXAM DATE: ORDERING PHYSICIAN: TRINA WESTON TECHNOLOGIST: Location: [facility] Patient: Patricia Garcia : 1935 Visit/Account:[id number] Date of Sevice: 05/08/2018 CT angiogram chest with contrast Indication: Chest pain. Comparison: 03/13/2017. Technique: Axial CT images are obtained through the chest after administration of 75 mL Isovue 370 IV contrast. Reformatted coronal and sagittal images were reviewed as well as coronal MIP images. One of the following dose optimization techniques was utilized in the performance of this exam: auto mated exposure control; adjustment of the mA and/or kV according to the patient's size; or use of an iterative reconstruction technique. Specific details can be referenced in the facility's radiology C T exam operational policy. FINDINGS: No evidence of filling defect within the pulmonary vasculature to suggest pulmonary embolus. The heart is normal size without significant pericardial fluid and minimal anterior pericardial thick ening which is relatively stable. Mild coronary artery calcifications. The aorta shows mild atheroscl erotic calcific changes without aneurysm or dissection. The mediastinum and hilar regions show no enl arged lymph node or abnormal density. In the posterior superior aspect of the left lower lobe there is a persistent small area of airspace consolidation. This is similar to the previous examination and was biopsied on 07/07/2017. The lungs show no other indication of opacities. No consolidation, pleural effusion or pneumothorax. No discret e nodule. Airways are clear. Bony structures show no acute fractures. Stable compression of the T12 vertebral body. Degenerative c hanges spine. Remodeling of the upper sternum which is stable consistent previous fracture. No aggres sive bony lesions. Chest wall shows no enlarged axillary lymph nodes or masses. Upper abdomen is unremarkable with a small hiatal hernia present. IMPRESSION: 1. No evidence of pulmonary embolus. 2. No acute cardiothoracic abnormality 3. Persistent airspace opacity seen in the posterior superior aspect left lower lobe. This is previou sly biopsied. 4. Other stable chronic findings as above. Report Dictated By: Deshaun Kramer at 05/08/2018 4:51 PM Report E-Signed By: Deshaun Kramer at 05/08/2018 5:01 PM WSN:[id number]
[2018-05-08 17:30] VITALS: BP 161/84
[2018-05-08] MEDS ORDERED: predniSONE 20 MG TAB PO ONE (17:40)
[2018-05-08] MEDS ORDERED: PRED20TA6 PO (17:44)
== END 2018-05-08 18:13 | disposition home or self-care (01) ==
LOC: ER 14:01
DX: R07.9 Chest pain, unspecified (principal); R94.31 Abnormal electrocardiogram [ECG] [EKG]
CPT/HCPCS: 71046; 71275; 83880; 84484; 85025; 85379; 85651; 93005; 99284; A9270; J7050; J7512; Q9967; 82040; 82247; 82310; 82374; 82435; 82565; 82947; 84075; 84132; 84155; 84295; 84450; 84460; 84520

== ENCOUNTER → 2018-06-14 | Outpatient (CLI) | payer MEDICARE, OTHER | LOC: LAB 13:13 | PROVIDERS: ATTEND Emergency Medicine | DX: Z98.890 Other specified postprocedural states (principal); E34.9 Endocrine disorder, unspecified | CPT/HCPCS: 36415; 82340; 82570; 84443 ==

== ENCOUNTER → 2018-08-23 | Outpatient (CLI) | payer MEDICARE, OTHER ==
[~2018-08-23] MED LIST changes: +DEN60I SUBQ
[2018-08-23 08:47] LABS: PLATELET COUNT, AUTOMATED 292 K/uL (150-450)
== END ==
LOC: LAB 08:33
PROVIDERS: ATTEND Nurse Practitioner Family
DX: Z48.298 Encounter for aftercare following other organ transplant (principal); Z48.23 Encounter for aftercare following liver transplant; Z94.4 Liver transplant status
CPT/HCPCS: 36415; 80158; 82040; 82247; 82310; 82374; 82435; 82565; 82947; 84075; 84132; 84155; 84295; 84450; 84460; 84520; 85025

== ENCOUNTER → 2018-10-29 | Outpatient (CLI) | payer MEDICARE, OTHER ==
[2018-10-29 09:44] LABS: PLATELET COUNT, AUTOMATED 300 K/uL (150-450)
== END ==
LOC: LAB 09:21
PROVIDERS: ATTEND Nurse Practitioner Family
DX: Z48.298 Encounter for aftercare following other organ transplant (principal); Z48.23 Encounter for aftercare following liver transplant; Z94.4 Liver transplant status
CPT/HCPCS: 36415; 80158; 82040; 82247; 82310; 82374; 82435; 82565; 82947; 84075; 84132; 84155; 84295; 84450; 84460; 84520; 85025

== ENCOUNTER 2018-11-27 05:02 | Emergency (ER) | payer MEDICARE, OTHER ==
--- NOTE | 2018-11-27 05:04 | ER Report ---
History and Physical Time Seen By MD: 05:04 HPI/RICH CHIEF COMPLAINT: Chest pain HISTORY OF PRESENT ILLNESS: 83-year-old female presents with chest pain since 10 PM last night. She took Tylenol retired to bed. The pain resolved until 2 AM she's been awake for the last 3 hours, with discomfort in her chest. She notes no diaphoresis or shortness of breath. She describes substernal chest pain or/10, radiating to her left shoulder. She says been this bad as 01/19. She states she was seen previously and had pericarditis. She thinks she may have be having pericarditis. Again REVIEW OF SYSTEMS: Respiratory: No cough, no dyspnea. Cardiovascular: As above Gastrointestinal: No vomiting, no abdominal pain. Musculoskeletal: No back pain. Allergies: Coded Allergies: Sulfa (Sulfonamide Antibiotics) (Verified Allergy, Severe, blisters in mouth, 05/08/18) lisinopril (Verified Allergy, Severe, angioedema, 05/08/18) alendronate sodium (Verified Allergy, Intermediate, JOINT SWELLING, 05/08/18) benzalkonium chloride (Verified Allergy, Intermediate, FACIAL SWELLING, 05/08/18) brimonidine (Verified Allergy, Intermediate, SWELLING, 05/08/18) chocolate flavor (Verified Allergy, Intermediate, UNKNOWN, 05/08/18) clindamycin (Verified Allergy, Intermediate, facial swelling, itching and rash, 05/08/18) difluprednate (Verified Allergy, Intermediate, SWELLING, 05/08/18) dog dander (Verified Allergy, Intermediate, RASH, 05/08/18) dorzolamide (Verified Allergy, Intermediate, EYE ITCHING, 05/08/18) timolol (Verified Allergy, Intermediate, EYE ITCHING, 05/08/18) travoprost (Verified Allergy, Intermediate, FACIAL SWELLING, 05/08/18) milk (Verified Allergy, Mild, RASH, 05/08/18) Uncoded Allergies: PRESERVATIVES IN EYE MEDS (Allergy, Unknown, 09/07/13) Home Meds Active Scripts Prednisone (PREDNISONE) 20 Mg Tablet, 40 MG PO QDAY for pericarditis inflammation, #11 2. By mouth daily for 4 days, then one by mouth by mouth every day for 3 days Prov:ABHISHEK VELAZCO DO 5/18/19 Levothyroxine Sodium (LEVOTHYROXINE SODIUM) 50 Mcg Tablet, 50 MCG PO QDAY, #90 TAB 1 Refill Prov:MAT RICHEY MD 06/15/18 Prednisone (PREDNISONE) 20 Mg Tablet, 40 MG PO QDAY, #6 TAB 0 Refills Prov:TRINA WESTON MD 05/08/18 Levothyroxine Sodium (LEVOTHYROXINE SODIUM) 25 Mcg Tablet, 25 MCG PO QDAY, #14 TAB 0 Refills Take 25 mcg for two weeks, then increase to 50 mcg for four weeks, and have TSH re-drawn on 06/01/2018 at [facility] lab. Prov:MAT RICHEY MD 04/30/18 Atorvastatin Calcium (ATORVASTATIN CALCIUM) 10 Mg Tablet, 1 TAB PO QDAY, #90 TAB 3 Refills Prov:HORACE MEJIA MD 03/03/18 Pimecrolimus (ELIDEL) 30 Gm Cream..g., 1 BRENDA TP PRN, #1 TUBE 0 Refills Prov:MAT RICHEY MD 02/12/18 Hydroxyzine Hcl (HYDROXYZINE HCL) 25 Mg Tablet, 1 TAB PO TID PRN for itching, #30 TAB 1 Refill Prov:HORACE MEJIA MD 10/13/17 Furosemide (LASIX) 20 Mg Tablet, 1 TAB PO DAILY PRN for edema, #30 TAB 5 Refills Prov:HORACE MEJIA MD 01/29/17 Reported Medications Denosumab (PROLIA) 60 Mg/1 Ml Injs, 60 MG SUBQ Q 6 months 08/04/18 Mv-Mn/FA/Vit K/Lycop/Lut/Zeaxa (Ocuvite Eye + Multi Tablet) 1 Each Tablet, 1 DAILY 03/13/17 Calcium Carbonate/Vitamin D3 (CALCIUM 600 + VIT D 200 TABLET) 1 Each Tablet, 1 EACH PO DAILY 03/13/17 Cyclosporine (CYCLOSPORINE) 25 Mg Capsule, 2 CAP PO BID, CAPSULE 02/20/16 Cetirizine Hcl (ZYRTEC) 10 Mg Tablet, 1 TAB PO QDAY PRN for ALLERGY SYMPTOMS, TAB 02/01/16 Acetaminophen (TYLENOL EXTRA STRENGTH) 500 Mg Tablet, 1-2 TAB PO QID PRN for PAIN, TAB 02/01/16 Ursodiol (URSODIOL) 300 Mg Capsule, 1 CAP PO BID, CAPSULE 01/30/15 Past Medical/Surgical History Past medical history: Glaucoma, macular degeneration, edema, hyperlipidemia, hypertension, pericarditis 03/29, 10/28, cirrhosis, biliary cirrhosis 1993, status post transplant 1995, gout, osteoarthritis and back, he osteoporosis, hyperparathyroidism, hypothyroidism, shingles 1994, cellulitis, left arm 03/27. Past surgical history cataract extraction, left eye, tonsillectomy 1941, eye surgery, laser for glaucoma 02/21, 03/27, 11/25, appendectomy, cholecystectomy, liver transplant , hysterectomy for fibroids, total joint replacement, left CORDELIA 11/22, right CORDELIA 03/26, parathyroidectomy 2 Reviewed Nurses Notes: Yes Old Medical Records Reviewed: Yes Hx Smoking: No Smoking Status: Never Smoker Exposure to Second Hand Smoke?: Yes (father smoked pipes, smoked cigarettes and pipes) Hx Substance Use Disorder: No Hx Alcohol Use: No Constitutional Vital Sign - Last 24 Hours 11/27/18 11/27/18 11/27/18 11/27/18 05:06 05:10 05:17 05:32 Pulse 95 85 Resp 18 13 B/P (MAP) 160/93 160/93 (115) Pulse Ox 96 95 93 O2 Delivery Room Air 11/27/18 11/27/18 05:47 06:02 Pulse 87 Resp 38 Pulse Ox 92 91 Physical Exam Vital signs stable, afebrile, pulse ox normal General Appearance: The patient is alert, has no immediate need for airway protection and no current signs of toxicity. Mild distress Eyes: Pupils equal and round no injection. Respiratory: Chest is non tender, lungs are clear to auscultation. Cardiac: regular rate and rhythm. No chest wall tenderness Gastrointestinal: Abdomen is soft and non tender, no masses, bowel sounds normal. Musculoskeletal: Neck: Neck is supple and non tender. Extremities have full range of motion and are non tender. Trace edema Skin: No rashes or lesions. DIFFERENTIAL DIAGNOSIS: After history and physical exam differential diagnosis was considered for chest pain including but not limited to myocardial ischemia, pericarditis pulmonary embolus, chest wall pain, pleural inflammation and pulmonary infectious causes. Medical Decision Making Data Points Result Diagram: 11/27/18 0512 11/27/18 05 Laboratory Hematology Test 11/27/18 05:12 Red Blood Count 4.78 M/uL (4.17-5.56) Mean Corpuscular Volume 92.4 fL (80.0-96.0) Mean Corpuscular Hemoglobin 31.5 pg (26.0-33.0) Mean Corpuscular Hemoglobin Concent 34.1 g/dL (32.0-36.0) Red Cell Distribution Width 14.0 % (11.5-14.5) Mean Platelet Volume 7.9 fL (7.2-11.1) Neutrophils (%) (Auto) 80.0 % (39.4-72.5) Lymphocytes (%) (Auto) 7.6 % (17.6-49.6) Monocytes (%) (Auto) 7.1 % (4.1-12.4) Eosinophils (%) (Auto) 4.8 % (0.4-6.7) Basophils (%) (Auto) 0.5 % (0.3-1.4) Nucleated RBC Relative Count (auto) 0.1 /100WBC Neutrophils # (Auto) 7.4 K/uL (2.0-7.4) Lymphocytes # (Auto) 0.7 K/uL (1.3-3.6) Monocytes # (Auto) 0.7 K/uL (0.3-1.0) Eosinophils # (Auto) 0.4 K/uL (0.0-0.5) Basophils # (Auto) 0.0 K/uL (0.0-0.1) Nucleated RBC Absolute Count (auto) 0.01 K/uL Erythrocyte Sedimentation Rate 49 mm/HOUR (0-30) D-Dimer Quantitative (PE/DVT) 0.72 ug/ml (0-0.50) Sodium Level 136 mmol/L (137-145) Potassium Level 3.7 mmol/L (3.5-5.0) Chloride Level 98 mmol/L (98-107) Carbon Dioxide Level 27 mmol/L (22-31) Blood Urea Nitrogen 19 mg/dl (7-18) Creatinine 1.20 mg/dl (0.52-1.04) Glomerular Filtration Rate Calc 42.9 Random Glucose 123 mg/dl (75-110) Calcium Level 9.2 mg/dl (8.4-10.2) Total Bilirubin 0.9 mg/dl (0.2-1.3) Aspartate Amino Transf (AST/SGOT) 55 U/L (0-35) Alanine Aminotransferase (ALT/SGPT) 50 U/L (0-56) Alkaline Phosphatase 873 U/L (0-126) Troponin I < 0.012 ng/ml C-Reactive Protein 1.1 mg/dl (<1.0) B-Type Natriuretic Peptide 77 pg/ml (0-100) Total Protein 8.0 g/dl (6.3-8.2) Albumin 4.4 g/dl (3.5-5.0) Chemistry Test 11/27/18 05:12 White Blood Count 9.2 k/uL (4.5-11.0) Red Blood Count 4.78 M/uL (4.17-5.56) Hemoglobin 15.1 g/dL (12.0-16.0) Hematocrit 44.2 % (34.0-47.0) Mean Corpuscular Volume 92.4 fL (80.0-96.0) Mean Corpuscular Hemoglobin 31.5 pg (26.0-33.0) Mean Corpuscular Hemoglobin Concent 34.1 g/dL (32.0-36.0) Red Cell Distribution Width 14.0 % (11.5-14.5) Platelet Count 294 K/uL (150-450) Mean Platelet Volume 7.9 fL (7.2-11.1) Neutrophils (%) (Auto) 80.0 % (39.4-72.5) Lymphocytes (%) (Auto) 7.6 % (17.6-49.6) Monocytes (%) (Auto) 7.1 % (4.1-12.4) Eosinophils (%) (Auto) 4.8 % (0.4-6.7) Basophils (%) (Auto) 0.5 % (0.3-1.4) Nucleated RBC Relative Count (auto) 0.1 /100WBC Neutrophils # (Auto) 7.4 K/uL (2.0-7.4) Lymphocytes # (Auto) 0.7 K/uL (1.3-3.6) Monocytes # (Auto) 0.7 K/uL (0.3-1.0) Eosinophils # (Auto) 0.4 K/uL (0.0-0.5) Basophils # (Auto) 0.0 K/uL (0.0-0.1) Nucleated RBC Absolute Count (auto) 0.01 K/uL Erythrocyte Sedimentation Rate 49 mm/HOUR (0-30) D-Dimer Quantitative (PE/DVT) 0.72 ug/ml (0-0.50) Glomerular Filtration Rate Calc 42.9 Calcium Level 9.2 mg/dl (8.4-10.2) Total Bilirubin 0.9 mg/dl (0.2-1.3) Aspartate Amino Transf (AST/SGOT) 55 U/L (0-35) Alanine Aminotransferase (ALT/SGPT) 50 U/L (0-56) Alkaline Phosphatase 873 U/L (0-126) Troponin I < 0.012 ng/ml C-Reactive Protein 1.1 mg/dl (<1.0) B-Type Natriuretic Peptide 77 pg/ml (0-100) Total Protein 8.0 g/dl (6.3-8.2) Albumin 4.4 g/dl (3.5-5.0) Coagulation Test 11/27/18 05:12 D-Dimer Quantitative (PE/DVT) 0.72 ug/ml EKG/Imaging EKG Interpretation 12 lead EK Rhythm: Normal sinus rhythm, rate of 85 bpm [place]: normal QRS: normal ST segments: Nonspecific ST elevation inferiorly and laterally, comparison to previous EKG dated 05/08/18, no significant change,? Diffuse OH depression consistent with pericarditis Imaging X-ray: Two-view chest x-ray was obtained. I viewed the images myself on the PACS system. My interpretation of the images is: No infiltrate, no effusion, normal mediastinum., Comparison to previous chest x-ray dated 05/08/18, no significant change The radiologist interpretation had no clinically significant variation from this interpretation. ED Course/Re-evaluation Clinical Indication for ER IV: IV Access ED Course Patient was minute to an examination room. H&P was done. The differential diagnoses was considered. Patient with chest pain. Her EKG shows nonspecific ST changes with OH depression diffusely, likely pericarditis. Again. It is unchanged from her previous EKG significantly. Patient's sedimentation rate is grossly elevated. Patient's chest x-ray is unchanged. Troponin is unremarkable. Her d-dimer is mildly elevated 0.72. She has a chronically elevated troponin. She's had [address] angiograms in the past. I do not think a CT angiogram is warranted. Patient be treated for acute pericarditis with a prednisone taper. Ice follow up early next week with her primary care doctor Tereso. She was medicated with prednisone 40 mg and Tylenol 650 mg here in the ER. Decision to Disposition Date: November 27, 2018 Decision to Disposition Time: 05:42 Depart Departure Latest Vital Signs Vital Signs Date Time Temp Pulse Resp B/P (MAP) Pulse Ox O2 Delivery O2 Flow Rate FiO2 11/27/18 06:02 91 11/27/18 05:47 87 38 11/27/18 05:10 160/93 (115) 11/27/18 05:06 Room Air Impression: Primary Impression: Pericarditis Condition: Improved Disposition: HOME OR SELF-CARE Referrals: MAT RICHEY MD (PCP) New Scripts Prednisone (PREDNISONE) 20 Mg Tablet 40 MG PO QDAY for pericarditis inflammation, #11 2. By mouth daily for 4 days, then one by mouth by mouth every day for 3 days Prov: ABHISHEK VELAZCO DO 11/27/18 Patient Instructions: Acute Pericarditis (ED) Problem Qualifiers Primary Impression: Pericarditis Pericarditis type: unspecified type Chronicity: acute Qualified Codes: I30.9 - Acute pericarditis, unspecified ABHISHEK VELAZCO DO November 27, 2018 05:04
[2018-11-27 05:10] VITALS: BP 160/93
[2018-11-27] MEDS ORDERED: ASPIRIN 81 MG CHEW PO ONE (05:15)
[2018-11-27 05:21] LABS: PLATELET COUNT, AUTOMATED 294 K/uL (150-450)
[2018-11-27] MEDS ORDERED: PRED20TA6 PO (05:48)
[2018-11-27] MEDS ORDERED: predniSONE 20 MG TAB PO ONE (05:55)
[2018-11-27] MEDS ORDERED: ACETAMINOPHEN 325 MG TAB PO ONE (05:55)
--- NOTE | 2018-11-27 06:04 | RADIOLOGY IMAGING REPORT ---
FACILITY: [facility] [place] PATIENT NAME: Patricia Garcia : 1935 MR: [id number] V: [id number] EXAM DATE: ORDERING PHYSICIAN: ABHISHEK VELAZCO TECHNOLOGIST: Location: [facility] Patient: Patricia Garcia : 1935 Visit/Account:[id number] Date of Sevice: 11/27/2018 CHEST: Indication: Inspiratory chest pain. Technique: Frontal and lateral views were obtained. Comparison: 05/08/2018 Skeletal and soft tissue structures: The left shoulder prosthesis appears unchanged. No acute skeleta l deformity is identified. Heart and mediastinum: Within normal limits. Lung rivero: Well-expanded. No focal or diffuse opacities. Pleural spaces: No evidence of pneumothorax or effusion. Impression: No acute process or significant change. Report Dictated By: Zachary Merritt MD at 11/27/2018 5:57 AM Report E-Signed By: Zachary Merritt MD at 11/27/2018 5:59 AM WSN:[id number]
--- NOTE | 2018-11-27 06:43 | EKG ---
[place] [facility] [place] NAME: MONICA MYERS : [id number] MR: [id number] V: [id number] EXAM DATE: ORDERING PHYSICIAN: ABHISHEK VELAZCO TECHNOLOGIST: ANNA Test Reason : CHEST PAIN Blood Pressure : / mmHG Vent. Rate : 085 BPM Atrial Rate : 085 BPM P-R Int : 176 ms QRS Dur : 072 ms QT Int : 370 ms P-R-T Axes : 094 057 074 degrees QTc Int : 440 ms Normal sinus rhythm Nonspecific ST abnormality Abnormal ECG When compared with ECG of 08-MAY-2018 14:22, No significant change was found Questionable change in QRS axis Confirmed by Thomas Peña ([id number]) on 11/27/2018 1:04:52 PM Referred By: Confirmed By:Thomas Thompson
== END 2018-11-27 06:13 | disposition home or self-care (01) ==
LOC: ER 05:07
DX: I30.9 Acute pericarditis, unspecified (principal)
CPT/HCPCS: 71046; 83880; 84484; 85025; 85379; 85651; 86140; 93005; 99283; A9270; J7512; 82040; 82247; 82310; 82374; 82435; 82565; 82947; 84075; 84132; 84155; 84295; 84450; 84460; 84520

== ENCOUNTER → 2018-11-30 | Outpatient (CLI) | payer MEDICARE, OTHER | LOC: LAB 12:59 | PROVIDERS: ATTEND Emergency Medicine | DX: I31.9 Disease of pericardium, unspecified (principal); E03.9 Hypothyroidism, unspecified | CPT/HCPCS: 36415; 84443; 86038 ==

== ENCOUNTER → 2018-12-02 | Outpatient (CLI) | payer MEDICARE, OTHER ==
--- NOTE | 2018-12-07 12:27 | RADIOLOGY IMAGING REPORT ---
FACILITY: [facility] [place] PATIENT NAME: MONICA MYERS : [id number] MR: [id number] V: [id number] EXAM DATE: [id number] ORDERING PHYSICIAN: MAT RICHEY TECHNOLOGIST: Sole Blevins PROCEDURE: BILATERAL DIGITAL SCREENING MAMMOGRAM WITH CAD ASSISTED INTERPRETATION & 3D TOMOSYNTHESIS REASON FOR STUDY: Screening. FAMILY HISTORY OF BREAST CANCER: None. BREAST PROCEDURES/TREATMENTS: Benign surgical biopsy in the Left breast. COMPARISON: Prior mammograms 10/28/17, 08/08/16, 07/29/16, 07/26/15, 07/11/14, 07/01/13. VIEWS OBTAINED: 2D & 3D full field CC & MLO. BREAST DENSITY: The breasts are almost entirely fatty. MAMMOGRAM FINDINGS: The parenchymal pattern has remained stable allowing for difference in mammographic technique & patient positioning. IMPRESSION: BIRADS 1: Negative. DIAGNOSTIC CATEGORY 1--NEGATIVE. RECOMMENDATIONS: ROUTINE MAMMOGRAM AND CLINICAL EVALUATION. Dictated by: Gertrudis Enriquez M.D. on 12/02/2018 at 15:47 Transcribed by: IVA on 12/03/2018 at 9:47 Approved by: Gertrudis Enriquez M.D. on 12/07/2018 at 12:26 [facility]
== END ==
LOC: MAMO 00:52
PROVIDERS: ATTEND Emergency Medicine
DX: Z12.31 Encounter for screening mammogram for malignant neoplasm of breast (principal)
CPT/HCPCS: 77063; 77067

== ENCOUNTER 2018-12-12 08:10 | Emergency (ER) | payer MEDICARE, OTHER ==
--- NOTE | 2018-12-12 08:27 | ER Report ---
History and Physical Time Seen By MD: 08:27 Hx. of Stated Complaint: PATIENT REPORTS PAIN ON THE LEFT SIDE OF THE CHEST. WAS SEEN 2 WEEKS AGO FOR PERICARDITIS, PATIENT REPORTS IT FEELS THE SAME LAST TIME HPI/ROS 83-year-old female with multiple medical problems as well as multiple cardiac risk factors presents to the emergency department stating "I have pain from pericarditis." She has been diagnosed with pericarditis multiple times since 2017. She said she was diagnosed again 2 weeks ago, and was on a course of prednisone. She describes sharp, shooting pain at the left chest. No SOB, no fever/chills, no diaphoresis, no recent URI. She has not had a recent stress test, but thinks she had a chemical stress test years ago. She is scheduled to follow up with a shower maid in January. She currently has 2/10 chest pain. Remainder of the 14 system rev: Yes Allergies: Coded Allergies: Sulfa (Sulfonamide Antibiotics) (Verified Allergy, Severe, blisters in mouth, 05/08/18) lisinopril (Verified Allergy, Severe, angioedema, 05/08/18) alendronate sodium (Verified Allergy, Intermediate, JOINT SWELLING, 05/08/18) benzalkonium chloride (Verified Allergy, Intermediate, FACIAL SWELLING, 05/08/18) brimonidine (Verified Allergy, Intermediate, SWELLING, 05/08/18) chocolate flavor (Verified Allergy, Intermediate, UNKNOWN, 05/08/18) clindamycin (Verified Allergy, Intermediate, facial swelling, itching and rash, 05/08/18) difluprednate (Verified Allergy, Intermediate, SWELLING, 05/08/18) dog dander (Verified Allergy, Intermediate, RASH, 05/08/18) dorzolamide (Verified Allergy, Intermediate, EYE ITCHING, 05/08/18) timolol (Verified Allergy, Intermediate, EYE ITCHING, 05/08/18) travoprost (Verified Allergy, Intermediate, FACIAL SWELLING, 05/08/18) milk (Verified Allergy, Mild, RASH, 05/08/18) Uncoded Allergies: PRESERVATIVES IN EYE MEDS (Allergy, Unknown, 09/07/13) Home Meds Active Scripts Prednisone 10 Mg Tab (PREDNISONE 10 MG TAB) 10 Mg Tablet, 10 MG PO QDAY for 5 Days, #5 TAB Prov:CHANEL MARCUS MD 12/12/18 Prednisone (PREDNISONE) 20 Mg Tablet, 40 MG PO QDAY for pericarditis inflammation, #11 2. By mouth daily for 4 days, then one by mouth by mouth every day for 3 days Prov:ABHISHEK VELAZCO DO 11/27/18 Levothyroxine Sodium (LEVOTHYROXINE SODIUM) 50 Mcg Tablet, 50 MCG PO QDAY, #90 TAB 1 Refill Prov:MAT RIDER MD 06/15/18 Levothyroxine Sodium (LEVOTHYROXINE SODIUM) 25 Mcg Tablet, 25 MCG PO QDAY, #14 TAB 0 Refills Take 25 mcg for two weeks, then increase to 50 mcg for four weeks, and have TSH re-drawn on 06/01/2018 at [facility] lab. Prov:MAT RIDER MD 04/30/18 Atorvastatin Calcium (ATORVASTATIN CALCIUM) 10 Mg Tablet, 1 TAB PO QDAY, #90 TAB 3 Refills Prov:HORACE MEJIA MD 03/03/18 Pimecrolimus (ELIDEL) 30 Gm Cream..g., 1 BRENDA TP PRN, #1 TUBE 0 Refills Prov:AMT RIDER MD 02/12/18 Hydroxyzine Hcl (HYDROXYZINE HCL) 25 Mg Tablet, 1 TAB PO TID PRN for itching, #30 TAB 1 Refill Prov:HORACE MEJIA MD 10/13/17 Furosemide (LASIX) 20 Mg Tablet, 1 TAB PO DAILY PRN for edema, #30 TAB 5 Refills Prov:HORACE MEJIA MD 01/29/17 Reported Medications Denosumab (PROLIA) 60 Mg/1 Ml Injs, 60 MG SUBQ Q 6 months 08/04/18 Mv-Mn/FA/Vit K/Lycop/Lut/Zeaxa (Ocuvite Eye + Multi Tablet) 1 Each Tablet, 1 DAILY 03/13/17 Calcium Carbonate/Vitamin D3 (CALCIUM 600 + VIT D 200 TABLET) 1 Each Tablet, 1 EACH PO DAILY 03/13/17 Cyclosporine (CYCLOSPORINE) 25 Mg Capsule, 2 CAP PO BID, CAPSULE 02/20/16 Cetirizine Hcl (ZYRTEC) 10 Mg Tablet, 1 TAB PO QDAY PRN for ALLERGY SYMPTOMS, T AB 02/01/16 Acetaminophen (TYLENOL EXTRA STRENGTH) 500 Mg Tablet, 1-2 TAB PO QID PRN for PAIN, TAB 02/01/16 Ursodiol (URSODIOL) 300 Mg Capsule, 1 CAP PO BID, CAPSULE 01/30/15 Reviewed Nurses Notes: Yes Old Medical Records Reviewed: Yes Hx Smoking: No Smoking Status: Never Smoker Exposure to Second Hand Smoke?: Yes (father smoked pipes, smoked cigarettes and pipes) Hx Substance Use Disorder: No Hx Alcohol Use: No Constitutional Vital Sign - Last 24 Hours 12/12/18 12/12/18 12/12/18 12/12/18 08:10 08:14 08:14 08:30 Pulse 125 118 Resp 19 B/P (MAP) 159/103 (121) 130/86 (101) Pulse Ox 89 O2 Delivery Room Air 12/12/18 12/12/18 12/12/18 12/12/18 08:45 09:00 09:10 09:30 Pulse 123 104 Resp 10 15 B/P (MAP) 134/90 (105) 123/98 (106) Pulse Ox 95 93 O2 Flow Rate 1.0 12/12/18 12/12/18 12/12/18 12/12/18 09:50 09:55 10:00 10:15 Pulse 104 103 105 Resp 18 21 16 B/P (MAP) 123/82 (96) Pulse Ox 92 92 92 12/12/18 12/12/18 12/12/18 12/12/18 10:30 10:35 10:55 11:15 Pulse 98 109 101 Resp 20 18 29 B/P (MAP) 132/80 (97) Pulse Ox 94 91 96 12/12/18 12/12/18 12/12/18 12/12/18 11:30 11:35 11:40 12:00 Pulse 92 67 71 Resp 19 14 13 B/P (MAP) 125/97 (106) 134/87 (103) Pulse Ox 89 95 94 12/12/18 12/12/18 12/12/18 12/12/18 12:20 12:30 12:40 13:00 Pulse 69 67 68 Resp 15 14 13 B/P (MAP) 128/83 (98) 126/72 (90) Pulse Ox 92 91 87 12/12/18 13:20 Pulse 77 Resp 27 Pulse Ox 87 Physical Exam General Appearance: The patient is alert, has no immediate need for airway protection and no current signs of toxicity. Eyes: Pupils equal and round no injection. Respiratory: Chest is non tender, lungs are clear to auscultation. Cardiac: tachycardic, regular rate and rhythm Gastrointestinal: Abdomen is soft and non tender, no masses, bowel sounds normal. Extremities have full range of motion and are non tender. Skin: No rashes or lesions. DIFFERENTIAL DIAGNOSIS: After history and physical exam differential diagnosis was considered for chest pain including but not limited to myocardial ischemia, pericarditis pulmonary embolus, chest wall pain, pleural inflammation and pulmonary infectious causes. Medical Decision Making Data Points Result Diagram: 12/12/18 0821 12/12/18 0821 Laboratory Hematology Test 12/12/18 00:00 12/12/18 08:21 12/12/18 11:59 D-Dimer Quantitative (PE/DVT) 0.44 ug/ml (0-0.50) Red Blood Count 4.77 M/uL (4.17-5.56) Mean Corpuscular Volume 92.1 fL (80.0-96.0) Mean Corpuscular Hemoglobin 31.5 pg (26.0-33.0) Mean Corpuscular Hemoglobin Concent 34.2 g/dL (32.0-36.0) Red Cell Distribution Width 14.4 % (11.5-14.5) Mean Platelet Volume 8.2 fL (7.2-11.1) Neutrophils (%) (Auto) 83.6 % (39.4-72.5) Lymphocytes (%) (Auto) 6.8 % (17.6-49.6) Monocytes (%) (Auto) 5.9 % (4.1-12.4) Eosinophils (%) (Auto) 3.2 % (0.4-6.7) Basophils (%) (Auto) 0.5 % (0.3-1.4) Nucleated RBC Relative Count (auto) 0.0 /100WBC Neutrophils # (Auto) 7.9 K/uL (2.0-7.4) Lymphocytes # (Auto) 0.6 K/uL (1.3-3.6) Monocytes # (Auto) 0.6 K/uL (0.3-1.0) Eosinophils # (Auto) 0.3 K/uL (0.0-0.5) Basophils # (Auto) 0.0 K/uL (0.0-0.1) Nucleated RBC Absolute Count (auto) 0.00 K/uL Sodium Level 135 mmol/L (137-145) Potassium Level 3.9 mmol/L (3.5-5.0) Chloride Level 95 mmol/L (98-107) Carbon Dioxide Level 27 mmol/L (22-31) Blood Urea Nitrogen 34 mg/dl (7-18) Creatinine 1.30 mg/dl (0.52-1.04) Glomerular Filtration Rate Calc 39.1 Random Glucose 182 mg/dl (75-110) Calcium Level 10.2 mg/dl (8.4-10.2) Total Bilirubin 1.2 mg/dl (0.2-1.3) Aspartate Amino Transf (AST/SGOT) 56 U/L (0-35) Alanine Aminotransferase (ALT/SGPT) 66 U/L (0-56) Alkaline Phosphatase 955 U/L (0-126) Total Protein 7.8 g/dl (6.3-8.2) Albumin 4.4 g/dl (3.5-5.0) Troponin I < 0.012 ng/ml Chemistry Test 12/12/18 00:00 12/12/18 08:21 12/12/18 11:59 D-Dimer Quantitative (PE/DVT) 0.44 ug/ml (0-0.50) White Blood Count 9.5 k/uL (4.5-11.0) Red Blood Count 4.77 M/uL (4.17-5.56) Hemoglobin 15.0 g/dL (12.0-16.0) Hematocrit 43.9 % (34.0-47.0) Mean Corpuscular Volume 92.1 fL (80.0-96.0) Mean Corpuscular Hemoglobin 31.5 pg (26.0-33.0) Mean Corpuscular Hemoglobin Concent 34.2 g/dL (32.0-36.0) Red Cell Distribution Width 14.4 % (11.5-14.5) Platelet Count 293 K/uL (150-450) Mean Platelet Volume 8.2 fL (7.2-11.1) Neutrophils (%) (Auto) 83.6 % (39.4-72.5) Lymphocytes (%) (Auto) 6.8 % (17.6-49.6) Monocytes (%) (Auto) 5.9 % (4.1-12.4) Eosinophils (%) (Auto) 3.2 % (0.4-6.7) Basophils (%) (Auto) 0.5 % (0.3-1.4) Nucleated RBC Relative Count (auto) 0.0 /100WBC Neutrophils # (Auto) 7.9 K/uL (2.0-7.4) Lymphocytes # (Auto) 0.6 K/uL (1.3-3.6) Monocytes # (Auto) 0.6 K/uL (0.3-1.0) Eosinophils # (Auto) 0.3 K/uL (0.0-0.5) Basophils # (Auto) 0.0 K/uL (0.0-0.1) Nucleated RBC Absolute Count (auto) 0.00 K/uL Glomerular Filtration Rate Calc 39.1 Calcium Level 10.2 mg/dl (8.4-10.2) Total Bilirubin 1.2 mg/dl (0.2-1.3) Aspartate Amino Transf (AST/SGOT) 56 U/L (0-35) Alanine Aminotransferase (ALT/SGPT) 66 U/L (0-56) Alkaline Phosphatase 955 U/L (0-126) Total Protein 7.8 g/dl (6.3-8.2) Albumin 4.4 g/dl (3.5-5.0) Troponin I < 0.012 ng/ml Coagulation Test 12/12/18 00:00 D-Dimer Quantitative (PE/DVT) 0.44 ug/ml ED Course/Re-evaluation ED Course Looking at the EMR, I am not clear as to when and why this patient was initially diagnosed with pericarditis. Her EKG is at baseline today, and there is no evidence of pericarditis. I acquired to sets of troponins, 3 hours apart, and both are negative. This patient otherwise looks very well. She does not appear as if she is having an acute PA or an acute CAD event. Looking at Dr. Rider's notes, the patient was suppose to follow up for a stress test, but has not. I discussed with the patient that she would definitely need a stress test considering the diagnosis of pericarditis is not clear. No evidence of pericardial effusion. Given prednisone 10mg qd for 5 days, and she will follow up with Dr. Rider this week. Decision to Disposition Date: Dec 12, 2018 Decision to Disposition Time: 13:12 Depart Departure Latest Vital Signs Vital Signs Date Time Temp Pulse Resp B/P (MAP) Pulse Ox O2 Delivery O2 Flow Rate FiO2 12/12/18 13:20 77 27 87 12/12/18 13:00 126/72 (90) 12/12/18 08:45 1.0 12/12/18 08:14 Room Air Impression: Primary Impression: Chest pain of uncertain etiology Condition: Improved Disposition: HOME OR SELF-CARE Referrals: MAT RIDER MD (PCP) New Scripts Prednisone 10 Mg Tab (PREDNISONE 10 MG TAB) 10 Mg Tablet 10 MG PO QDAY for 5 Days, #5 TAB Prov: CHANEL MARCUS MD 12/12/18 Patient Instructions: Noncardiac Chest Pain (ED) Additional Instructions: Make an appointment with Dr. Rider this week to discuss scheduling a stress test. Return to the ER if your chest pain returns. CHANEL MARCUS MD Dec 12, 2018 08:27
[2018-12-12] MEDS ORDERED: ASPIRIN 81 MG CHEW PO ONE (08:45)
[2018-12-12 09:08] LABS: PLATELET COUNT, AUTOMATED 293 K/uL (150-450)
--- NOTE | 2018-12-12 09:09 | RADIOLOGY IMAGING REPORT ---
FACILITY: [facility] - [place] PATIENT NAME: Patricia Garcia : 1935 MR: [id number] V: [id number] EXAM DATE: ORDERING PHYSICIAN: CHANEL MARCUS TECHNOLOGIST: Location: [facility] [place] Patient: Patricia Garcia : 1935 Visit/Account:[id number] Date of Sevice: 12/12/2018 Chest with lateral, 2 views. HISTORY: Chest pain. COMPARISON: Chest radiographs 11/27/2018, chest CT scan 05/07/2018. The thoracic aorta is elongated and calcified. The heart and mediastinum are otherwise unremarkable. No bulky adenopathy. Pulmonary vessels are unremarkable. The lungs are voluminous. An opacity in t he superior segment of the left lower lobe is unchanged. The pleural surfaces are unremarkable. No pn eumothorax. A moderate compression fracture is present in the lower thoracic spine, unchanged. Degene rative changes are present in the spine. Metal hardware is present in the left shoulder. Metal clip i s present in the right upper abdomen. The abdominal aorta is calcified. IMPRESSION: Aortic atherosclerosis. COPD. Opacity in the superior segment of the left lower lobe, unchanged. Otherwise no evidence of acute cardiopulmonary disease. Report Dictated By: Juarez Pina MD at 12/12/2018 9:01 AM Report E-Signed By: Juarez Pina MD at 12/12/2018 9:05 AM WSN:[id number]
[2018-12-12] MEDS ORDERED: ACETAMINOPHEN 500 MG TAB PO ONE (09:30)
[2018-12-12] MEDS ORDERED: NS(*) 0.9% 500 ML BAG 500 ML IV ONE (09:30)
--- NOTE | 2018-12-12 09:46 | EKG ---
FACILITY: [facility] [place] PATIENT NAME: MONICA MYERS : [id number] MR: [id number] V: [id number] EXAM DATE: ORDERING PHYSICIAN: CHANEL MARCUS TECHNOLOGIST: MARITZA Test Reason : CP Blood Pressure : / mmHG Vent. Rate : 111 BPM Atrial Rate : 111 BPM P-R Int : 206 ms QRS Dur : 072 ms QT Int : 306 ms P-R-T Axes : 072 008 043 degrees QTc Int : 416 ms Sinus tachycardia Nonspecific ST abnormality Abnormal ECG When compared with ECG of 27-NOV-2018 05:17, No significant change was found Confirmed by Thomas Peña ([id number]) on 12/12/2018 5:17:36 PM Referred By: AMRIT Confirmed By:Thomas Thompson
[2018-12-12 13:00] VITALS: BP 126/72
[2018-12-12] MEDS ORDERED: PRED-1 PO (13:14)
[2018-12-14] MEDS ORDERED: LEVO50TA86 PO (10:04)
== END 2018-12-12 13:35 | disposition home or self-care (01) ==
LOC: ER 08:41
DX: R07.9 Chest pain, unspecified (principal); Z79.899 Other long term (current) drug therapy
CPT/HCPCS: 71046; 84484; 85025; 85379; 93005; 96360; 96361; 99284; A9270; J7040; 82040; 82247; 82310; 82374; 82435; 82565; 82947; 84075; 84132; 84155; 84295; 84450; 84460; 84520

== ENCOUNTER → 2018-12-14 | Outpatient (CLI) | payer MEDICARE, OTHER | LOC: US 00:19 | PROVIDERS: ATTEND Emergency Medicine | DX: I07.1 Rheumatic tricuspid insufficiency (principal) | CPT/HCPCS: 93306 ==

== ENCOUNTER → 2018-12-22 | Outpatient (CLI) | payer MEDICARE, OTHER ==
[~2018-12-22] MED LIST changes: +HYDR30CR10 TP; +REGADENOSON 0.4 MG/5 ML SYR ONE
--- NOTE | 2018-12-23 14:01 | RADIOLOGY IMAGING REPORT ---
FACILITY: [facility] PATIENT NAME: Patricia Garcia : 1935 MR: [id number] V: [id number] EXAM DATE: ORDERING PHYSICIAN: MAT RICHEY TECHNOLOGIST: Location: [facility] Patient: Patricia Garcia : 1935 Visit/Account:[id number] Date of Sevice: 12/22/2018 EXAMINATION: Single isotope SPECT imaging with regadenoson infusion and gated SPECT imaging. DATE OF EXAMINATION: 12/22/2018. DATE OF INTERPRETATION: 12/23/2018. REQUESTING PHYSICIAN: MAT RICHEY. INDICATION: The patient is a 83-year-old female evaluated for chest discomfort. PROCEDURE: After informed consent the patient received an intravenous injection of 11.8 mCi of Tc-99 m sestamibi followed at an appropriate time interval by rest imaging. The patient then subsequently received an intravenous infusion of 0.4 mg of regadenoson per protocol without complication. Resting heart rate was 68 bpm with a peak heart rate of 102 bpm. Blood pressure at rest was 141 / 81 and fo llowing infusion was 68 / 18 2. Baseline EKG demonstrates sinus rhythm. There were no EKG changes o f ischemia following infusion. Symptoms were nonspecific. The patient then received an intravenous injection of 28.9 mCi of Tc-99m sestamibi followed by stress imaging. RAW DATA: Examination of the summed raw data revealed a adequate quality study. There is increased G I uptake but no significant artifact. MYOCARDIAL PERFUSION: The tomographic images demonstrate normal perfusion in all myocardial segments at rest and with stress. No transient ischemic dilation. GATED IMAGES: The gated images demonstrate normal LV function greater than 70%. IMPRESSION: 1. Nondiagnostic pharmacologic stress ECG. 2. Normal myocardial perfusion scan. 3. Normal LV systolic function; LVEF >70%. 4. Based on the results of this exam, the patient appears to be at low risk for near term future card iovascular events. Intermediate long-term risk based on need for pharmacologic stress agent as oppose d to exercise. Report Dictated By: Jacky Elder at 12/23/2018 1:50 PM Report E-Signed By: Jacky lEder at 12/23/2018 1:56 PM WSN:[id number]
== END ==
LOC: NUC 01:14
PROVIDERS: ATTEND Emergency Medicine
DX: R07.89 Other chest pain (principal)
CPT/HCPCS: 78452; 93017; A9500; J2785

== ENCOUNTER 2018-12-29 12:12 | Emergency (ER) | payer MEDICARE, OTHER ==
--- NOTE | 2018-12-29 12:22 | ER Report ---
History and Physical Time Seen By MD: 12:20 HPI/ROS CHIEF COMPLAINT: Transient paresthesias of the tongue, left forearm, left calf HISTORY OF PRESENT ILLNESS: Patient is an 83-year-old female here with complaints of the above. Episode started while the patient was being transported and resolved within 5 minutes. Patient was noted be hypertensive but was found to be 145/90 at time of evaluation. Patient denies current symptoms. Patient is well-appearing at time of evaluation, afebrile. REVIEW OF SYSTEMS: Constitutional: No fever, no chills. Eyes: No discharge. ENT: No sore throat. Cardiovascular: No chest pain, no palpitations. Respiratory: No cough, no shortness of breath. Gastrointestinal: No abdominal pain, no vomiting. Genitourinary: No hematuria. Musculoskeletal: No back pain. Skin: No rashes. Neurological: No headache. + Transient paresthesias of the tongue, left forearm, left calf Allergies: Coded Allergies: Sulfa (Sulfonamide Antibiotics) (Verified Allergy, Severe, blisters in mouth, 12/29/18) lisinopril (Verified Allergy, Severe, angioedema, 12/29/18) alendronate sodium (Verified Allergy, Intermediate, JOINT SWELLING, 12/29/18) benzalkonium chloride (Verified Allergy, Intermediate, FACIAL SWELLING, 12/29/18) brimonidine (Verified Allergy, Intermediate, SWELLING, 12/29/18) chocolate flavor (Verified Allergy, Intermediate, UNKNOWN, 12/29/18) clindamycin (Verified Allergy, Intermediate, facial swelling, itching and rash, 12/29/18) difluprednate (Verified Allergy, Intermediate, SWELLING, 12/29/18) dog dander (Verified Allergy, Intermediate, RASH, 12/29/18) dorzolamide (Verified Allergy, Intermediate, EYE ITCHING, 12/29/18) timolol (Verified Allergy, Intermediate, EYE ITCHING, 12/29/18) travoprost (Verified Allergy, Intermediate, FACIAL SWELLING, 12/29/18) milk (Verified Allergy, Mild, RASH, 12/29/18) Uncoded Allergies: PRESERVATIVES IN EYE MEDS (Allergy, Unknown, 09/07/13) Home Meds Active Scripts Hydrocortisone 2.5 % 30 GM CREAM (Hydrocortisone 2.5 % 30 GM CREAM) 2.5 % Cream.appl, 1 BRENDA TP BID for 30 Days, #1 TUBE 1 Refill Prov:ROSMERY CRUZ Martha NPC 12/23/18 Levothyroxine Sodium (LEVOTHYROXINE SODIUM) 50 Mcg Tablet, 50 MCG PO QDAY, #90 TAB 3 Refills Prov:MAT RICHEY MD 12/14/18 Prednisone 10 Mg Tab (PREDNISONE 10 MG TAB) 10 Mg Tablet, 10 MG PO QDAY for 5 Days, #5 TAB Prov:CHANEL MARCUS MD 12/12/18 Prednisone (PREDNISONE) 20 Mg Tablet, 40 MG PO QDAY for pericarditis inflammation, #11 2. By mouth daily for 4 days, then one by mouth by mouth every day for 3 days Prov:BAHISHEK VELAZCO DO 11/27/18 Atorvastatin Calcium (ATORVASTATIN CALCIUM) 10 Mg Tablet, 1 TAB PO QDAY, #90 TAB 3 Refills Prov:HORACE MEJIA MD 03/03/18 Pimecrolimus (ELIDEL) 30 Gm Cream..g., 1 BRENDA TP PRN, #1 TUBE 0 Refills Prov:MAT RICHEY MD 02/12/18 Hydroxyzine Hcl (HYDROXYZINE HCL) 25 Mg Tablet, 1 TAB PO TID PRN for itching, #30 TAB 1 Refill Prov:HORACE MEJIA MD 10/13/17 Furosemide (LASIX) 20 Mg Tablet, 1 TAB PO DAILY PRN for edema, #30 TAB 5 Refills Prov:HORACE MEJIA MD 01/29/17 Reported Medications Denosumab (PROLIA) 60 Mg/1 Ml Injs, 60 MG SUBQ Q 6 months 08/04/18 Mv-Mn/FA/Vit K/Lycop/Lut/Zeaxa (Ocuvite Eye + Multi Tablet) 1 Each Tablet, 1 DAILY 03/13/17 Calcium Carbonate/Vitamin D3 (CALCIUM 600 + VIT D 200 TABLET) 1 Each Tablet, 1 EACH PO DAILY 03/13/17 Cyclosporine (CYCLOSPORINE) 25 Mg Capsule, 2 CAP PO BID, CAPSULE 02/20/16 Cetirizine Hcl (ZYRTEC) 10 Mg Tablet, 1 TAB PO QDAY PRN for ALLERGY SYMPTOMS, TAB 02/01/16 Acetaminophen (TYLENOL EXTRA STRENGTH) 500 Mg Tablet, 1-2 TAB PO QID PRN for PAIN, TAB 02/01/16 Ursodiol (URSODIOL) 300 Mg Capsule, 1 CAP PO BID, CAPSULE 01/30/15 Hx Smoking: No Smoking Status: Never Smoker Exposure to Second Hand Smoke?: Yes (father smoked pipes, smoked ci garettes and pipes) Hx Substance Use Disorder: No Hx Alcohol Use: No Constitutional Vital Sign - Last 24 Hours 12/29/18 12/29/18 12/29/18 12/29/18 12:12 12:15 12:22 12:27 Temp 98.0 Pulse ??? 75 75 Resp 74 B/P (MAP) 132/77 132/77 (95) Pulse Ox 93 93 O2 Delivery Room Air 12/29/18 12/29/18 12:30 12:32 Pulse 73 B/P (MAP) 145/90 (108) Pulse Ox 94 Physical Exam General Appearance: The patient is alert, has no immediate need for airway protection and no signs of toxicity. No acute distress Eyes: Pupils equal and round no pallor or injection. ENT, Mouth: Mucous membranes are moist. Respiratory: There are no retractions, lungs are clear to auscultation. Cardiovascular: Regular rate and rhythm. [ ] Gastrointestinal: Abdomen is soft and non tender, no masses, bowel sounds normal. Neurological: No focal neurological deficits on examination, intact motor strength and sensation in distal extremities, cranial nerves intact Skin: Warm and dry, no rashes. Musculoskeletal: Neck is supple non tender. Extremities are nontender, nonswollen and have full range of motion. DIFFERENTIAL DIAGNOSIS: After history and physical exam differential diagnosis was considered for electrolyte abnormality, TIA, CVA, dehydration, arrhythmia Medical Decision Making Data Points Result Diagram: 12/29/18 1220 12/29/18 1220 Laboratory Hematology Test 12/29/18 12:20 12/29/18 13:08 Red Blood Count 4.68 M/uL (4.17-5.56) Mean Corpuscular Volume 93.3 fL (80.0-96.0) Mean Corpuscular Hemoglobin 31.6 pg (26.0-33.0) Mean Corpuscular Hemoglobin Concent 33.8 g/dL (32.0-36.0) Red Cell Distribution Width 14.4 % (11.5-14.5) Mean Platelet Volume 8.2 fL (7.2-11.1) Neutrophils (%) (Auto) 74.6 % (39.4-72.5) Lymphocytes (%) (Auto) 15.6 % (17.6-49.6) Monocytes (%) (Auto) 6.5 % (4.1-12.4) Eosinophils (%) (Auto) 2.7 % (0.4-6.7) Basophils (%) (Auto) 0.6 % (0.3-1.4) Nucleated RBC Relative Count (auto) 0.2 /100WBC Neutrophils # (Auto) 4.9 K/uL (2.0-7.4) Lymphocytes # (Auto) 1.0 K/uL (1.3-3.6) Monocytes # (Auto) 0.4 K/uL (0.3-1.0) Eosinophils # (Auto) 0.2 K/uL (0.0-0.5) Basophils # (Auto) 0.0 K/uL (0.0-0.1) Nucleated RBC Absolute Count (auto) 0.01 K/uL Erythrocyte Sedimentation Rate 35 mm/HOUR (0-30) Sodium Level 135 mmol/L (137-145) Potassium Level 4.2 mmol/L (3.5-5.0) Chloride Level 98 mmol/L (98-107) Carbon Dioxide Level 26 mmol/L (22-31) Blood Urea Nitrogen 18 mg/dl (7-18) Creatinine 1.20 mg/dl (0.52-1.04) Glomerular Filtration Rate Calc 42.9 Random Glucose 101 mg/dl (75-110) Calcium Level 9.6 mg/dl (8.4-10.2) Total Bilirubin 1.3 mg/dl (0.2-1.3) Aspartate Amino Transf (AST/SGOT) 55 U/L (0-35) Alanine Aminotransferase (ALT/SGPT) 66 U/L (0-56) Alkaline Phosphatase 1090 U/L (0-126) Total Protein 8.1 g/dl (6.3-8.2) Albumin 4.4 g/dl (3.5-5.0) Lipase 173 U/L (23-300) Urine Color Yellow Urine Clarity Clear Urine pH 6.0 pH (4.8-9.5) Urine Specific [place] 1.006 Urine Protein Negative mg/dL (NEGATIVE) Urine Glucose (UA) Negative mg/dL (NEGATIVE) Urine Ketones Negative mg/dL (NEGATIVE) Urine Blood Negative (NEGATIVE) Urine Nitrite Negative (NEGATIVE) Urine Bilirubin Negative (NEGATIVE) Urine Urobilinogen Negative mg/dL (0.2-1.9) Urine Leukocyte Esterase Negative (NEGATIVE) Urine RBC <1 /HPF (0-2/HPF) Urine WBC 4 /HPF (0-5/HPF) Urine Squamous Epithelial Cells None /LPF (</=FEW) Urine Bacteria Negative /HPF (NONE-FEW) Urine Mucus None /HPF (NONE-FEW) Chemistry Test 12/29/18 12:20 12/29/18 13:08 White Blood Count 6.6 k/uL (4.5-11.0) Red Blood Count 4.68 M/uL (4.17-5.56) Hemoglobin 14.8 g/dL (12.0-16.0) Hematocrit 43.7 % (34.0-47.0) Mean Corpuscular Volume 93.3 fL (80.0-96.0) Mean Corpuscular Hemoglobin 31.6 pg (26.0-33.0) Mean Corpuscular Hemoglobin Concent 33.8 g/dL (32.0-36.0) Red Cell Distribution Width 14.4 % (11.5-14.5) Platelet Count 324 K/uL (150-450) Mean Platelet Volume 8.2 fL (7.2-11.1) Neutrophils (%) (Auto) 74.6 % (39.4-72.5) Lymphocytes (%) (Auto) 15.6 % (17.6-49.6) Monocytes (%) (Auto) 6.5 % (4.1-12.4) Eosinophils (%) (Auto) 2.7 % (0.4-6.7) Basophils (%) (Auto) 0.6 % (0.3-1.4) Nucleated RBC Relative Count (auto) 0.2 /100WBC Neutrophils # (Auto) 4.9 K/uL (2.0-7.4) Lymphocytes # (Auto) 1.0 K/uL (1.3-3.6) Monocytes # (Auto) 0.4 K/uL (0.3-1.0) Eosinophils # (Auto) 0.2 K/uL (0.0-0.5) Basophils # (Auto) 0.0 K/uL (0.0-0.1) Nucleated RBC Absolute Count (auto) 0.01 K/uL Erythrocyte Sedimentation Rate 35 mm/HOUR (0-30) Glomerular Filtration Rate Calc 42.9 Calcium Level 9.6 mg/dl (8.4-10.2) Total Bilirubin 1.3 mg/dl (0.2-1.3) Aspartate Amino Transf (AST/SGOT) 55 U/L (0-35) Alanine Aminotransferase (ALT/SGPT) 66 U/L (0-56) Alkaline Phosphatase 1090 U/L (0-126) Total Protein 8.1 g/dl (6.3-8.2) Albumin 4.4 g/dl (3.5-5.0) Lipase 173 U/L (23-300) Urine Color Yellow Urine Clarity Clear Urine pH 6.0 pH (4.8-9.5) Urine Specific [place] 1.006 Urine Protein Negative mg/dL (NEGATIVE) Urine Glucose (UA) Negative mg/dL (NEGATIVE) Urine Ketones Negative mg/dL (NEGATIVE) Urine Blood Negative (NEGATIVE) Urine Nitrite Negative (NEGATIVE) Urine Bilirubin Negative (NEGATIVE) Urine Urobilinogen Negative mg/dL (0.2-1.9) Urine Leukocyte Esterase Negative (NEGATIVE) Urine RBC <1 /HPF (0-2/HPF) Urine WBC 4 /HPF (0-5/HPF) Urine Squamous Epithelial Cells None /LPF (</=FEW) Urine Bacteria Negative /HPF (NONE-FEW) Urine Mucus None /HPF (NONE-FEW) Urinalysis Test 12/29/18 13:08 Urine Color Yellow Urine Clarity Clear Urine pH 6.0 pH (4.8-9.5) Urine Specific [place] 1.006 Urine Protein Negative mg/dL (NEGATIVE) Urine Glucose (UA) Negative mg/dL (NEGATIVE) Urine Ketones Negative mg/dL (NEGATIVE) Urine Blood Negative (NEGATIVE) Urine Nitrite Negative (NEGATIVE) Urine Bilirubin Negative (NEGATIVE) Urine Urobilinogen Negative mg/dL (0.2-1.9) Urine Leukocyte Esterase Negative (NEGATIVE) Urine RBC <1 /HPF (0-2/HPF) Urine WBC 4 /HPF (0-5/HPF) Urine Squamous Epithelial Cells None /LPF (</=FEW) Urine Bacteria Negative /HPF (NONE-FEW) Urine Mucus None /HPF (NONE-FEW) EKG/Imaging EKG Interpretation 12 lead EKG: Normal sinus rhythm, ventricular rate 68, QTC 404, no ischemia or arrhythmias present Rhythm: normal sinus rhythm [place]: normal QRS: normal ST segments: normal Imaging PATIENT NAME: Patricia Garcia : 1935 MR: [id number] V: [id number] EXAM DATE: ORDERING PHYSICIAN: MANAS DILLON TECHNOLOGIST: Location: [facility] - [place], [place] Patient: Patricia Garcia : 1935 Visit/Account:[id number] Date of Sevice: 12/29/2018 CT BRAIN NO CONTRAST History: Headache TECHNIQUE: Contiguous angled axial images were obtained from the vertex through the base of the skull without intravenous contrast. One of the following dose optimization techniques was utilized in the performance of this exam: Automated exposure control; adjustment of the mA and/or kV according to the patient's size; or use of an iterative reconstruction technique. Specific details can be referenced in the facility's radiology CT exam operational policy. COMPARISON STUDIES: none FINDINGS: Ventricles / sulci / fissures: Vessels are mildly prominent compatible with age-related volume loss. Masses / hemorrhage / midline shift: Negative. Intra-axial findings: Normal. Extra-axial fluid collections: Prominence of CSF over the vertex related to global volume loss. Intracranial vasculature and dural sinuses: Prominent calcific plaque seen in the cavernous portion of the carotid arteries. Skull base / calvarium: Negative. Scalp: negative Visualized mastoid air cells / paranasal sinuses: Well aerated. Orbits: There is homogenous high density material in the vitreous chamber of the left eye which measures 82 Hounsfield units. There is a crescentic low density areas seen along the posterior wall. Clinical correlation needed as this probably represents injected fluid related to an ophthalmic procedure. It appears too dense to represent hemorrhage but the crescentic low density in the posterior wall does suggest a retinal detachment.. IMPRESSION: High density material seen in the posterior chamber of the left eye probably related to an ophthalmic procedure. This was discussed with the referring physician who reports the patient had a remote history of a retinal detachment with subsequent ophthalmic procedure and injections in the left eye. The patient is blind in the left eye. Senescent brain changes. No acute intracranial pathology identified. ED Course/Re-evaluation ED Course Patient is an 83-year-old female here with complaints of transient paresthesias of the tongue, isolated left forearm, isolated left calf. EKG showed normal sinus rhythm, no ischemic changes, ventricular rate 68, QTC 404. CT imaging of the head and basic labs were completed. CT imaging showed no acute intracranial findings. Labs were stable compared to prior with no leukocytosis, urinalysis was unremarkable. Close PCP follow-up recommended. Return precautions provided. Decision to Disposition Date: Dec 29, 2018 Decision to Disposition Time: 13:52 Depart Departure Latest Vital Signs Vital Signs Date Time Temp Pulse Resp B/P (MAP) Pulse Ox O2 Delivery O2 Flow Rate FiO2 12/29/18 12:32 73 94 12/29/18 12:30 145/90 (108) 12/29/18 12:15 98.0 74 Room Air Impression: Primary Impression: Paresthesias Condition: Improved Disposition: HOME OR SELF-CARE Referrals: MAT RICHEY MD (PCP) Patient Instructions: Paresthesia (ED) Additional Instructions: Please drink plenty of water. CT imaging of the head showed no intracranial bleeding or lesions. Your labs were found to be normal when compared to prior recorded labs. Please follow-up with your family doctor in the next 24-48 hours. Please return promptly if you develop recurrent episodes of numbness, weakness, nausea, vomiting, headaches. MANAS DILLON DO Dec 29, 2018 12:22
--- NOTE | 2018-12-29 12:45 | EKG ---
FACILITY[place] [facility] [place]IENT NAME: MONICA MYERS : [id number] MR: [id number] V: [id number] EXAM DATE: ORDERING PHYSICIAN: MANAS DILLON TECHNOLOGIST: SEAN Srinivasan Reason : WEAKNESS Blood Pressure : / mmHG Vent. Rate : 068 BPM Atrial Rate : 068 BPM P-R Int : 174 ms QRS Dur : 076 ms QT Int : 380 ms P-R-T Axes : 068 -06 033 degrees QTc Int : 404 ms Normal sinus rhythm Non-specific ST abnormality When compared with ECG of 12-DEC-2018 08:21, Vent. rate has decreased BY 43 BPM Confirmed by AISSATOU PURI ([id number]) on 12/29/2018 6:15:36 PM Referred By: WILMA Confirmed By:AISSATOU PURI
[2018-12-29 12:58] LABS: PLATELET COUNT, AUTOMATED 324 K/uL (150-450)
--- NOTE | 2018-12-29 13:31 | RADIOLOGY IMAGING REPORT ---
FACILITY: [facility] [place] PATIENT NAME: Patricia Garica : 1935 MR: [id number] V: [id number] EXAM DATE: ORDERING PHYSICIAN: MANAS DILLON TECHNOLOG[place]: [place] [facility] [place]: [place] : 1935 Visit/Account:[id number] Date of Sevice: 12/29/2018 CT BRAIN NO CONTRAST History: Headache TECHNIQUE: Contiguous angled axial images were obtained from the vertex through the base of the sku ll without intravenous contrast. One of the following dose optimization techniques was utilized in performance of this exam: Automated exposure control; adjustment of the mA and/or kV according to t he patient's size; or use of an iterative reconstruction technique. Specific details can be referen katherin in the facility's radiology CT exam operational policy. COMPARISON STUDIES: none FINDINGS: Ventricles / sulci / fissures: Vessels are mildly prominent compatible with age-related volume loss. Masses / hemorrhage / midline shift: Negative. Intra-axial findings: Normal. Extra-axial fluid collections: Prominence of CSF over the vertex related to global volume loss. Intracranial vasculature and dural sinuses: Prominent calcific plaque seen in the cavernous portion of the carotid arteries. Skull base / calvarium: Negative. Scalp: negative Visualized mastoid air cells / paranasal sinuses: Well aerated. Orbits: There is homogenous high density material in the vitreous chamber of the left eye which kael ures 82 Hounsfield units. There is a crescentic low density areas seen along the posterior wall. Cl inical correlation needed as this probably represents injected fluid related to an ophthalmic procedu re. It appears too dense to represent hemorrhage but the crescentic low density in the posterior wal l does suggest a retinal detachment.. IMPRESSION: High density material seen in the posterior chamber of the left eye probably related to an ophthalmic procedure. This was discussed with the referring physician who reports the patient had a remote his tory of a retinal detachment with subsequent ophthalmic procedure and injections in the left eye. patient is blind in the left eye. Senescent brain changes. No acute intracranial pathology identified. Results were called to MANAS DILLON at 12/29/2018 1:02 PM. Report Dictated By: Jerman Stanford MD at 12/29/2018 1:02 PM Report E-Signed By: Jerman Stanford MD at 12/29/2018 1:25 PM WSN:[id number]
[2018-12-29 14:00] VITALS: BP 136/82
== END 2018-12-29 13:58 | disposition home or self-care (01) ==
LOC: ER 12:23
DX: R20.2 Paresthesia of skin (principal)
CPT/HCPCS: 70450; 81001; 82040; 82247; 82310; 82374; 82435; 82565; 82947; 83690; 84075; 84132; 84155; 84295; 84450; 84460; 84520; 85025; 85651; 93005; 99284

== ENCOUNTER → 2018-12-29 | Outpatient (CLI) | payer MEDICARE, OTHER ==
[~2018-12-29] MED LIST changes: -REGADENOSON 0.4 MG/5 ML SYR ONE
== END ==
LOC: AMB 11:48
PROVIDERS: ATTEND Nurse Practitioner
DX: R20.0 Anesthesia of skin (principal); R53.1 Weakness
CPT/HCPCS: A0425; A0427

== ENCOUNTER → 2019-01-03 | Outpatient (CLI) | payer MEDICARE, OTHER ==
--- NOTE | 2019-01-03 15:50 | RADIOLOGY IMAGING REPORT ---
FACILITY: [facility] [place] PATIENT NAME: Patricia Garcia : 1935 MR: [id number] V: [id number] EXAM DATE: ORDERING PHYSICIAN: MAT RICHEY TECHNOLOGIST: Location: [facility] - [place] Patient: Patricia Garcia : 1935 Visit/Account:[id number] Date of Sevice: 01/03/2019 EXAMINATION: Carotid ultrasound with duplex Doppler evaluation HISTORY: TIA COMPARISON: None. TECHNIQUE: Real-time grayscale, color flow and Doppler sonography of the cervical carotid and vertebr al arteries is performed. Stenosis % is determined from velocity criteria extrapolated from diameter data as defined by the Soc iety of Radiologists in Ultrasound Consensus Conference Radiology 2003; 229; 340-346. FINDINGS: Plaque: There is no evidence of atherosclerotic plaque. Waveforms: Normal. Vertebral arteries: Antegrade flow in both vertebral arteries. Peak systolic velocities are listed below in centimeters/second: Right: CCA proximal: 62 CCA distal: 60 ICA proximal: 60 ICA mid: 49 ICA distal: 62 ECA: 78.9 Vertebral: 44.3 ICA/CCA ratio: 1.04 Left: CCA proximal: 72.1 CCA distal: 67.4 ICA proximal: 43.9 ICA mid: 57.0 ICA distal: 70.3 ECA: 61.1 Vertebral: 65.4 ICA/CCA ratio: 0.98 IMPRESSION: Normal right and left internal carotid artery Doppler ultrasound. No evidence of hemodynamically sig nificant stenosis. Report Dictated By: Héctor Centeno at 01/03/2019 3:41 PM Report E-Signed By: Héctor Centeno at 01/03/2019 3:44 PM WSN:[id number]
--- NOTE | 2019-01-06 06:11 | RT HOLTER TEST ---
[place] [facility] [place] NAME: MONICA MYERS : [id number] MR: [id number] V: [id number] EXAM DATE: ORDERING PHYSICIAN: MAT RICHEY TECHNOLOGIST: Lauar Hook-up date: 2019-01-03 13:51:00 Duration: 24:00:00 Test Indications: CHEST PAIN Medications: PLEASE SEE PATIENT LIST ON Y[facility] R DIARY [id number] QRS complexes 1 Ventricular ectopics which represent <1 % of total QRS comp. 2 Supraventricular ectopics which represent <1 % of total QRS comp. * Paced QRS complexes which represent % of total QRS comp. VENTRICULAR ECTOPY 1 Isolated 0 Bigeminal Cycles 0 Couplets 0 Runs 0 Beats in Runs * Beats LONGEST at * BPM at :: -- * Beats FASTEST at * BPM at :: -- SUPRAVENTRICULAR ECTOPY 2 Isolated 0 Couplets 0 Runs 0 Beats in Runs * Beats LONGEST at * BPM at :: -- * Beats FASTEST at * BPM at :: -- HEART RATES 53 MIN at 01:53:37 2019-01-04 71 AVG 108 MAX at 17:51:09 2019-01-03 LONGEST RR 1.152 secs at 01:55:33 2019-01-04 S-T LEVELS Channel 1 -12.800 mm MIN at 13:51:00 2019-01-03 -12.800 mm MAX at 13:51:00 2019-01-03 Channel 2 -12.800 mm MIN at 13:51:00 2019-01-03 -12.800 mm MAX at 13:51:00 2019-01-03 Channel 3 -12.800 mm MIN at 13:51:00 2019-01-03 -12.800 mm MAX at 13:51:00 2019-01-03 Sinus rhythm Isolated Premature ventricular complexes Confirmed by STUART SOLIMAN ([id number]) on 01/06/2019 6:09:09 AM Referred By: Overread By: STUART SOLIMAN
== END ==
LOC: RESP 07:10
PROVIDERS: ATTEND Emergency Medicine
DX: R07.89 Other chest pain (principal); R20.2 Paresthesia of skin
CPT/HCPCS: 93225; 93226; 93880

== ENCOUNTER → 2019-01-06 | Outpatient (CLI) | payer MEDICARE, OTHER ==
[2019-01-06 09:49] LABS: PLATELET COUNT, AUTOMATED 315 K/uL (150-450)
== END ==
LOC: LAB 08:45
PROVIDERS: ATTEND Nurse Practitioner Family
DX: Z48.298 Encounter for aftercare following other organ transplant (principal); Z48.23 Encounter for aftercare following liver transplant; Z94.4 Liver transplant status
CPT/HCPCS: 36415; 80158; 82040; 82247; 82310; 82374; 82435; 82565; 82947; 84075; 84132; 84155; 84295; 84450; 84460; 84520; 85025

== ENCOUNTER 2019-01-17 02:59 | Emergency (ER) | payer MEDICARE, OTHER ==
--- NOTE | 2019-01-17 03:02 | ER Report ---
History and Physical Time Seen By MD: 02:59 HPI/ROS CHIEF COMPLAINT: Chest pain HISTORY OF PRESENT ILLNESS: 83-year-old female with a history of pericarditis brought in by EMS from home with pain that started around 9 PM last evening. Patient notes 8/10 pain in the substernal region, radiating up into her shoulder blades in her neck. This is similar to her previous pericardial pain. She's had an elevated sedimentation rate in the past. She's been treated with prednisone and numerous occasions. Patient notes an occasional dry cough. She's had no fever or chills. She's had no sputum production. She does have chronic lower cavity edema and takes Lasix several times a week area. She is due to see cardiology on Thursday this next week for evaluation of her recurrent pericardial symptoms. Patient notes some mild shortness of breath. Her pulse ox was normal. On EMSs arrival at 92%. She is not on supplemental O2 at home. Patient notes that the pain is worse with lying supine. It is better with sitting up. REVIEW OF SYSTEMS: Respiratory: As above Cardiovascular: As above Gastrointestinal: No vomiting, no abdominal pain. Musculoskeletal: No back pain. Allergies: Coded Allergies: Sulfa (Sulfonamide Antibiotics) (Verified Allergy, Severe, blisters in mouth, 01/17/19) lisinopril (Verified Allergy, Severe, angioedema, 01/17/19) alendronate sodium (Verified Allergy, Intermediate, JOINT SWELLING, 01/17/19) benzalkonium chloride (Verified Allergy, Intermediate, FACIAL SWELLING, 01/17/19) brimonidine (Verified Allergy, Intermediate, SWELLING, 01/17/19) chocolate flavor (Verified Allergy, Intermediate, UNKNOWN, 01/17/19) clindamycin (Verified Allergy, Intermediate, facial swelling, itching and rash, 01/17/19) difluprednate (Verified Allergy, Intermediate, SWELLING, 01/17/19) dog dander (Verified Allergy, Intermediate, RASH, 01/17/19) dorzolamide (Verified Allergy, Intermediate, EYE ITCHING, 01/17/19) timolol (Verified Allergy, Intermediate, EYE ITCHING, 01/17/19) travoprost (Verified Allergy, Intermediate, FACIAL SWELLING, 01/17/19) milk (Verified Allergy, Mild, RASH, 01/17/19) Uncoded Allergies: PRESERVATIVES IN EYE MEDS (Allergy, Unknown, 09/07/13) Home Meds Active Scripts Prednisone (PREDNISONE) 20 Mg Tablet, 20 MG PO QDAY, #60 2 tablets by mouth daily for 3 days then 1 by mouth daily for 3 days, repeat as necessary Prov:ABHISHEK VELAZCO Rand DO 01/17/19 Hydrocortisone 2.5 % 30 GM CREAM (Hydrocortisone 2.5 % 30 GM CREAM) 2.5 % Cream.appl, 1 BRENDA TP BID for 30 Days, #1 TUBE 1 Refill Prov:ROSMERY CRUZ NPC 12/23/18 Levothyroxine Sodium (LEVOTHYROXINE SODIUM) 50 Mcg Tablet, 50 MCG PO QDAY, #90 TAB 3 Refills Prov:MAT RICHEY MD 12/14/18 Prednisone 10 Mg Tab (PREDNISONE 10 MG TAB) 10 Mg Tablet, 10 MG PO QDAY for 5 Days, #5 TAB Prov:CHANEL MARCUS MD 12/12/18 Prednisone (PREDNISONE) 20 Mg Tablet, 40 MG PO QDAY for pericarditis inflammation, #11 2. By mouth daily for 4 days, then one by mouth by mouth every day for 3 days Prov:ABHISHEK VELAZCO DO 11/27/18 Atorvastatin Calcium (ATORVASTATIN CALCIUM) 10 Mg Tablet, 1 TAB PO QDAY, #90 TAB 3 Refills Prov:HORACE MEJIA MD 03/03/18 Pimecrolimus (ELIDEL) 30 Gm Cream..g., 1 BRENDA TP PRN, #1 TUBE 0 Refills Prov:MAT RICHEY MD 02/12/18 Hydroxyzine Hcl (HYDROXYZINE HCL) 25 Mg Tablet, 1 TAB PO TID PRN for itching, #30 TAB 1 Refill Prov:HORACE MEJIA MD 10/13/17 Furosemide (LASIX) 20 Mg Tablet, 1 TAB PO DAILY PRN for edema, #30 TAB 5 Refills Prov:HORACE MEJIA MD 01/29/17 Reported Medications Denosumab (PROLIA) 60 Mg/1 Ml Injs, 60 MG SUBQ Q 6 months 08/04/18 Mv-Mn/FA/Vit K/Lycop/Lut/Zeaxa (Ocuvite Eye + Multi Tablet) 1 Each Tablet, 1 DAILY 03/13/17 Calcium Carbonate/Vitamin D3 (CALCIUM 600 + VIT D 200 TABLET) 1 Each Tablet, 1 EACH PO DAILY 03/13/17 Cyclosporine (CYCLOSPORINE) 25 Mg Capsule, 2 CAP PO BID, CAPSULE 02/20/16 Cetirizine Hcl (ZYRTEC) 10 Mg Tablet, 1 TAB PO QDAY PRN for ALLERGY SYMPTOMS, TAB 02/01/16 Acetaminophen (TYLENOL EXTRA STRENGTH) 500 Mg Tablet, 1-2 TAB PO QID PRN for PAIN, TAB 02/01/16 Ursodiol (URSODIOL) 300 Mg Capsule, 1 CAP PO BID, CAPSULE 01/30/15 Past Medical/Surgical History Past medical history: Macular degeneration 2002, edema, hyperlipidemia, hypertension, cirrhosis, biliary cirrhosis 1993. Status post liver transplant, gout, osteoarthritis of the neck, osteoporosis, history of pruritus and itching, hyperparathyroidism, hypothyroidism, cellulitis of the left arm. Past surgical history: Tonsillectomy 1941, laser eye surgery for glaucoma, total left shoulder arthroplasty, appendectomy, cholecystectomy, liver transplant, hysterectomy for fibroids, parathyroidectomy 2 Reviewed Nurses Notes: Yes Old Medical Records Reviewed: Yes Hx Smoking: No Smoking Status: Never Smoker Exposure to Second Hand Smoke?: Yes (father smoked pipes, smoked cigarettes and pipes) Hx Substance Use Disorder: No Hx Alcohol Use: No Constitutional Vital Sign - Last 24 Hours 01/17/19 01/17/19 03:01 03:08 Temp 97.4 Pulse 78 Resp 16 B/P (MAP) 150/88 Pulse Ox 93 O2 Delivery Room Air O2 Flow Rate 1.0 Physical Exam General Appearance: The patient is alert, has no immediate need for airway protection and no current signs of toxicity. Vital signs stable, afebrile, pulse ox normal HEENT: Pupils equal and round no injection. Oropharynx without redness or exudate Respiratory: Chest is non tender, lungs are clear to auscultation. No chest wall tenderness Cardiac: regular rate and rhythm, no murmur or rub Gastrointestinal: Abdomen is soft and non tender, no masses, bowel sounds normal. Musculoskeletal: Neck: Neck is supple and non tender. Extremities have full range of motion and are non tender. Skin: No rashes or lesions. DIFFERENTIAL DIAGNOSIS: After history and physical exam differential diagnosis was considered for chest pain including but not limited to myocardial ischemia, pericarditis pulmonary embolus, chest wall pain, pleural inflammation and pulmonary infectious causes. Medical Decision Making Data Points Result Diagram: 01/17/19 0253 01/17/19 0253 Laboratory Hematology Test 01/17/19 02:53 01/17/19 03:14 Red Blood Count 4.49 M/uL (4.17-5.56) Mean Corpuscular Volume 92.7 fL (80.0-96.0) Mean Corpuscular Hemoglobin 31.3 pg (26.0-33.0) Mean Corpuscular Hemoglobin Concent 33.7 g/dL (32.0-36.0) Red Cell Distribution Width 14.7 % (11.5-14.5) Mean Platelet Volume 8.3 fL (7.2-11.1) Neutrophils (%) (Auto) 80.3 % (39.4-72.5) Lymphocytes (%) (Auto) 9.6 % (17.6-49.6) Monocytes (%) (Auto) 6.7 % (4.1-12.4) Eosinophils (%) (Auto) 2.9 % (0.4-6.7) Basophils (%) (Auto) 0.5 % (0.3-1.4) Nucleated RBC Relative Count (auto) 0.1 /100WBC Neutrophils # (Auto) 9.1 K/uL (2.0-7.4) Lymphocytes # (Auto) 1.1 K/uL (1.3-3.6) Monocytes # (Auto) 0.8 K/uL (0.3-1.0) Eosinophils # (Auto) 0.3 K/uL (0.0-0.5) Basophils # (Auto) 0.1 K/uL (0.0-0.1) Nucleated RBC Absolute Count (auto) 0.01 K/uL Erythrocyte Sedimentation Rate 69 mm/HOUR (0-30) Sodium Level 137 mmol/L (137-145) Potassium Level 3.9 mmol/L (3.5-5.0) Chloride Level 98 mmol/L (98-107) Carbon Dioxide Level 27 mmol/L (22-31) Blood Urea Nitrogen 26 mg/dl (7-18) Creatinine 1.20 mg/dl (0.52-1.04) Glomerular Filtration Rate Calc 42.9 Random Glucose 138 mg/dl (75-110) Calcium Level 9.6 mg/dl (8.4-10.2) Total Bilirubin 1.2 mg/dl (0.2-1.3) Aspartate Amino Transf (AST/SGOT) 54 U/L (0-35) Alanine Aminotransferase (ALT/SGPT) 60 U/L (0-56) Alkaline Phosphatase 713 U/L (0-126) Troponin I < 0.012 ng/ml C-Reactive Protein < 0.5 mg/dl (<1.0) B-Type Natriuretic Peptide 118 pg/ml (0-100) Total Protein 7.4 g/dl (6.3-8.2) Albumin 4.1 g/dl (3.5-5.0) D-Dimer Quantitative (PE/DVT) 0.31 ug/ml (0-0.50) Chemistry Test 01/17/19 02:53 01/17/19 03:14 White Blood Count 11.3 k/uL (4.5-11.0) Red Blood Count 4.49 M/uL (4.17-5.56) Hemoglobin 14.0 g/dL (12.0-16.0) Hematocrit 41.7 % (34.0-47.0) Mean Corpuscular Volume 92.7 fL (80.0-96.0) Mean Corpuscular Hemoglobin 31.3 pg (26.0-33.0) Mean Corpuscular Hemoglobin Concent 33.7 g/dL (32.0-36.0) Red Cell Distribution Width 14.7 % (11.5-14.5) Platelet Count 284 K/uL (150-450) Mean Platelet Volume 8.3 fL (7.2-11.1) Neutrophils (%) (Auto) 80.3 % (39.4-72.5) Lymphocytes (%) (Auto) 9.6 % (17.6-49.6) Monocytes (%) (Auto) 6.7 % (4.1-12.4) Eosinophils (%) (Auto) 2.9 % (0.4-6.7) Basophils (%) (Auto) 0.5 % (0.3-1.4) Nucleated RBC Relative Count (auto) 0.1 /100WBC Neutrophils # (Auto) 9.1 K/uL (2.0-7.4) Lymphocytes # (Auto) 1.1 K/uL (1.3-3.6) Monocytes # (Auto) 0.8 K/uL (0.3-1.0) Eosinophils # (Auto) 0.3 K/uL (0.0-0.5) Basophils # (Auto) 0.1 K/uL (0.0-0.1) Nucleated RBC Absolute Count (auto) 0.01 K/uL Erythrocyte Sedimentation Rate 69 mm/HOUR (0-30) Glomerular Filtration Rate Calc 42.9 Calcium Level 9.6 mg/dl (8.4-10.2) Total Bilirubin 1.2 mg/dl (0.2-1.3) Aspartate Amino Transf (AST/SGOT) 54 U/L (0-35) Alanine Aminotransferase (ALT/SGPT) 60 U/L (0-56) Alkaline Phosphatase 713 U/L (0-126) Troponin I < 0.012 ng/ml C-Reactive Protein < 0.5 mg/dl (<1.0) B-Type Natriuretic Peptide 118 pg/ml (0-100) Total Protein 7.4 g/dl (6.3-8.2) Albumin 4.1 g/dl (3.5-5.0) D-Dimer Quantitative (PE/DVT) 0.31 ug/ml (0-0.50) Coagulation Test 01/17/19 03:14 D-Dimer Quantitative (PE/DVT) 0.31 ug/ml EKG/Imaging EKG Interpretation 12 lead EK 314 Rhythm: Normal sinus rhythm at 69 bpm [place]: normal QRS: normal ST segments: normal, comparison to previous EKG dated 12/29/18. There is diffuse IN depression consistent with pericarditis, nonspecific ST abnormality ED Course/Re-evaluation Clinical Indication for ER IV: IV Access ED Course Patient was admitted to an examination room. H&P was done. The differential diagnoses was considered. On clinical examination. Patient with chest pain. Her EKG is unremarkable. Except for IN depression. It's unchanged from previous EKGs. Patient's been in numerous times with chest pains. She is due to see cardiology in 2 days. Patient's diagnostic studies returned unremarkable with a negative troponin, and an unchanged EKG, negative d-dimer. Her segmentation rate was 69, suggesting an inflammatory etiology to her chest pain, likely pericarditis. She was treated with Zofran, fentanyl for immediate relief. She refused aspirin secondary to her macular degeneration and potential hemorrhage. Patient was treated with prednisone 40 mg per she was discharged with a prednisone taper. She is advised to follow-up with cardiology as planned. She might benefit from referral to rheumatology or transplant specialist. Decision to Disposition Date: Jan 17, 2019 Decision to Disposition Time: 03:47 Depart Departure Latest Vital Signs Vital Signs Date Time Temp Pulse Resp B/P (MAP) Pulse Ox O2 Delivery O2 Flow Rate FiO2 01/17/19 03:08 1.0 01/17/19 03:01 97.4 78 16 150/88 93 Room Air Impression: Primary Impression: Chest pain of uncertain etiology Additional Impressions: Elevated sedimentation rate History of pericarditis Condition: Improved Disposition: HOME OR SELF-CARE Referrals: MAT RICHEY MD (PCP) New Scripts Prednisone (PREDNISONE) 20 Mg Tablet 20 MG PO QDAY, #60 2 tablets by mouth daily for 3 days then 1 by mouth daily for 3 days, repeat as necessary Prov: ABHISHEK VELAZCO DO 01/17/19 Patient Instructions: Noncardiac Chest Pain (ED) Additional Instructions: Follow-up with cardiology as planned in 2 days Problem Qualifiers ABHISHEK VELAZCO DO Jan 17, 2019 03:02
[2019-01-17] MEDS ORDERED: ONDANSETRON 4 MG/2 ML VIAL IVP ONE (03:05)
[2019-01-17] MEDS ORDERED: fentaNYL CITR 100 MCG/2 ML AMP IVP ONE (03:05)
[2019-01-17] MEDS ORDERED: ASPIRIN 81 MG CHEW PO ONE (03:05)
[2019-01-17 03:26] LABS: PLATELET COUNT, AUTOMATED 284 K/uL (150-450)
--- NOTE | 2019-01-17 03:29 | EKG ---
FACILITY: [facility] - [place] PATIENT NAME: MONICA MYERS : [id number] MR: [id number] V: [id number] EXAM DATE: ORDERING PHYSICIAN: ABHISHEK VELAZCO TECHNOLOGIST: TERELL Test Reason : CP Blood Pressure : / mmHG Vent. Rate : 069 BPM Atrial Rate : 069 BPM P-R Int : 186 ms QRS Dur : 082 ms QT Int : 412 ms P-R-T Axes : 078 -19 064 degrees QTc Int : 441 ms Normal sinus rhythm Nonspecific ST abnormality Abnormal ECG When compared with ECG of 29-DEC-2018 12:35, Nonspecific T wave abnormality no longer evident in Anterior leads Confirmed by JOSE YAP ([id number]) on 01/17/2019 5:45:45 AM Referred By: MORA Confirmed By:JOSE YAP
--- NOTE | 2019-01-17 03:48 | RADIOLOGY IMAGING REPORT ---
FACILITY: [facility] [place]IENT NAME: Patricia Garcia : 1935 MR: [id number] V: [id number] EXAM DATE: ORDERING PHYSICIAN: ABHISHEK VELAZCO TECHNOLOGIST: Location: [facility] Patient: Patricia Garcia : 1935 Visit/Account:[id number] Date of Sevice: 01/17/2019 PORTABLE CHEST: Indication: Chest pain and dyspnea. Technique: A single frontal film was obtained. Comparison: 12/12/2018 Skeletal and soft tissue structures: Intact and unchanged. Heart and mediastinum: Stable, allowing for technical differences. Lung rivero: Well-expanded and clear. No focal opacities. No evidence of vascular congestion. Pleural spaces: Unremarkable. Impression: No acute changes. Report Dictated By: Zachary Merritt MD at 01/17/2019 3:37 AM Report E-Signed By: Zachary Merritt MD at 01/17/2019 3:41 AM WSN:[id number]
[2019-01-17 04:00] VITALS: BP 118/75
[2019-01-17] MEDS ORDERED: PRED20TA6 PO (04:14)
[2019-01-17] MEDS ORDERED: predniSONE 20 MG TAB PO ONE ×2 (04:15→04:30)
== END 2019-01-17 04:39 | disposition home or self-care (01) ==
LOC: ER 03:05
DX: R07.9 Chest pain, unspecified (principal); R70.0 Elevated erythrocyte sedimentation rate; R06.00 Dyspnea, unspecified
CPT/HCPCS: 71045; 83880; 84484; 85025; 85379; 85651; 86140; 93005; 96374; 96375; 99284; J2405; J3010; J7512; 82040; 82247; 82310; 82374; 82435; 82565; 82947; 84075; 84132; 84155; 84295; 84450; 84460; 84520

== ENCOUNTER → 2019-02-09 | Outpatient (CLI) | payer MEDICARE, OTHER | LOC: LAB 11:16 | PROVIDERS: ATTEND Internal Medicine Cardiovascular Disease | DX: I31.9 Disease of pericardium, unspecified (principal) | CPT/HCPCS: 36415; 85651; 86140 ==